=== PATIENT | female | born 1970 | race African-American/Black ===

== ENCOUNTER 2023-01-03 02:07 | Inpatient (IN) | payer OTHER ==
[~2023-01-03] VITALS: Ht 165.1 cm; Wt 110.0 kg
[2023-01-03] VITALS (12 sets, daily range): BP systolic 128–196; BP diastolic 66–91
[2023-01-03 02:55] LABS: Basophils # (auto) 0.1 10 ^3/uL (0-0.2); Eosinophils # (auto) 0.2 10 ^3/uL (0-0.8); Eosinophils % (auto) 2.1 % (0.0-7.0); Lymphocytes # (auto) 2.2 10 ^3/uL (0.4-5.4); Monocytes # (auto) 0.5 10 ^3/uL (0-1.3)
[2023-01-03 02:57] LABS: Basophils % (auto) 1.1 % (0.0-2.0); Hematocrit 34.7 % (36.0-46.0); Hemoglobin 11.2 g/dL (12.2-16.2); Lymphocytes % (auto) 28.2 % (10.0-50.0); Mean Corpuscular Hgb Conc. 32.2 g/dL (32.0-36.0); Mean Corpuscular Volume 80.9 fL (80.0-100.0); Monocytes % (auto) 6.8 % (0.0-12.0); Neutrophils # (auto) 4.7 10 ^3/uL (1.6-8.6); Neutrophils % (auto) 61.8 % (37.0-80.0); Red Blood Cells 4.29 10^6/uL (4.0-5.20); Red Cell Distribution Width 19.7 % (11.8-14.3); White Blood Cell 7.6 10^3/uL (4.4-10.8)
[2023-01-03 03:01] LABS: INR 0.87 (0.9-1.15); Partial Thromboplastin Time 23.9 sec (24.6-33.4)
[2023-01-03 03:06] LABS: Albumin 3.4 g/dL (3.4-5.0); Calcium 8.9 mg/dL (8.5-10.1); Magnesium 1.8 mg/dL (1.6-2.6); Potassium 4.1 mmol/L (3.5-5.1)
[2023-01-03 03:09] LABS: Bilirubin, Total 0.5 mg/dL (0.2-1.0); Total Protein 6.9 g/dL (6.4-8.2)
[2023-01-03] MEDS ORDERED: HEPARIN DRIP/D5W 100UNITS/ML 250 ML IV SCH (04:00)
[2023-01-03] MEDS ORDERED: HEPARIN SODIUM (PORCINE) 5000 UNITS/ML 1ML VIAL IV ONE (04:00)
[2023-01-03] MEDS ORDERED: ACETAMINOPHEN 325 MG TAB PO ONE (04:30)
[2023-01-03] MEDS ORDERED: hydrALAZINE HCL 20 MG/ML VL IV PRN (06:30)
[2023-01-03] MEDS ORDERED: MORPHINE SULFATE INJ 2 MG/ml SYRG IV PRN ×2 (06:30→11:15)
[2023-01-03] MEDS ORDERED: NITROGLYCERIN 0.4 MG SL TAB SL PRN ×2 (06:30→11:15)
[2023-01-03] MEDS ORDERED: ONDANSETRON HCL 4 MG/2 ML VIAL IV PRN (06:30)
[2023-01-03] MEDS ORDERED: TEMAZEPAM 15 MG CAP PO PRN (06:30)
[2023-01-03] MEDS ORDERED: HYDROcodone-ACET 5/325MG TAB PO PRN (06:30)
[2023-01-03] MEDS ORDERED: DOCUSATE SOD 100 MG CAP PO PRN (06:30)
[2023-01-03] MEDS ORDERED: ACETAMINOPHEN 325 MG TAB PO PRN (06:30)
[2023-01-03] MEDS ORDERED: AZITHROMYCIN 500MG/ 250ML 250 ML IV ONE (06:45)
[2023-01-03 07:11] LABS: INR 0.88 (0.9-1.15); Partial Thromboplastin Time 24.8 sec (24.6-33.4)
[2023-01-03] MEDS: MORPHINE SULFATE INJ 2 MG/ml SYRG IV PRN ×2 (08:54→19:43)
[2023-01-03] MEDS: FAMOTIDINE (10MG/ML) 2ML VL IV SCH ×2 (08:56→22:24)
[2023-01-03 09:18] LABS: Cholesterol 220 mg/dL (< 200); HDL Cholesterol 69 mg/dL (40-59); LDL Cholesterol 124 mg/dL (< 100); Triglycerides 193 mg/dL (< 150)
[2023-01-03] MEDS ORDERED: VERAPAMIL 2.5MG/ML INJ 2ML VIAL IV ONE (09:56)
[2023-01-03] MEDS ORDERED: HEPARIN SODIUM (PORCINE) 5000 UNITS/ML 1ML VIAL ONE (09:56)
[2023-01-03] MEDS ORDERED: fentaNYL CITRATE 100 MCG/2 ML VL ONE (09:57)
[2023-01-03] MEDS ORDERED: MIDAZOLAM HCL 2MG/2ML 2ml VIAL (1mg/ml) ONE ×2 (09:57→10:45)
[2023-01-03] MEDS ORDERED: METOPROLOL TARTRATE 50 MG TAB PO SCH (10:00)
[2023-01-03] MEDS ORDERED: diphenhdrAMINE HCL 50 MG/1 ML VL ONE (10:02)
[2023-01-03] MEDS ORDERED: hydrALAZINE HCL 20 MG/ML VL ONE (10:21)
[2023-01-03] MEDS ORDERED: IODIXANOL 320MG/ML 100ML BTL IV ONE (10:48)
[2023-01-03] MEDS ORDERED: DEXTROSE (50%) 50ML SYRG IV PRN (12:15)
[2023-01-03] MEDS: AZITHROMYCIN 500MG/ 250ML 250 ML IV SCH (12:40)
[2023-01-03] MEDS: SACUBITRIL-VALSARTAN 24mg/26mg TAB PO SCH ×2 (12:45→22:26)
[2023-01-03] MEDS: ASPirin 81 mg TAB PO SCH (12:47)
[2023-01-03] MEDS: amLODIPine BESYLATE 5 MG TAB PO SCH (12:47)
[2023-01-03] MEDS ORDERED: ERGOCALCIFEROL 50,000 UNIT(1.25MG) CAP PO SCH (13:15)
[2023-01-03] MEDS ORDERED: CHOLECALCIFEROL (VITD3) 2,000 UNIT CAP/TAB PO ONE (13:15)
[2023-01-03] MEDS: SODIUM CHLOR 0.9% PF (SALINE LOCK) 10ML VIAL/SYR IV SCH ×2 (14:00→22:25)
[2023-01-03] MEDS ORDERED: ALBUTEROL SULF 2.5 MG/0.5ML(0.5%) NEB SOLN NEB PRN ×2 (16:15→16:30)
[2023-01-03] MEDS ORDERED: hydrALAZINE HCL 25 MG TAB PO PRN (16:15)
[2023-01-03] MEDS: ACCU-CHEK COMFORT CURVE STRIP VI SCH ×2 (16:55→22:26)
[2023-01-03] MEDS: InsuLIN REG 1unit/0.01ml Soln (100units/ml) SC SCH ×2 (17:00→23:23)
[2023-01-03] MEDS ORDERED: ATORVASTATIN 20 MG TAB PO SCH ×2 (22:00)
[2023-01-03] MEDS: CARVEDILOL 12.5 MG TAB PO SCH (22:25)
[2023-01-04] MEDS: MORPHINE SULFATE INJ 2 MG/ml SYRG IV PRN ×2 (01:59→08:51)
[2023-01-04 04:57] VITALS: BP 140/74
[2023-01-04] MEDS: ACCU-CHEK COMFORT CURVE STRIP VI SCH ×2 (06:12→11:53)
[2023-01-04] MEDS: SODIUM CHLOR 0.9% PF (SALINE LOCK) 10ML VIAL/SYR IV SCH (06:12)
[2023-01-04] MEDS: InsuLIN REG 1unit/0.01ml Soln (100units/ml) SC SCH ×2 (06:12→11:54)
[2023-01-04 06:47] LABS: Basophils # (auto) 0.1 10 ^3/uL (0-0.2); Basophils % (auto) 0.8 % (0.0-2.0); Eosinophils # (auto) 0.2 10 ^3/uL (0-0.8); Hemoglobin 10.9 g/dL (12.2-16.2); Monocytes # (auto) 0.6 10 ^3/uL (0-1.3); Nucleated Red Blood Cells % 0.2 %
[2023-01-04 06:49] LABS: Eosinophils % (auto) 2.5 % (0.0-7.0); Hematocrit 33.8 % (36.0-46.0); Lymphocytes % (auto) 24.2 % (10.0-50.0); Mean Corpuscular Hemoglobin 25.9 pg (28.0-32.0); Mean Corpuscular Hgb Conc. 32.3 g/dL (32.0-36.0); Mean Corpuscular Volume 80.2 fL (80.0-100.0); Monocytes % (auto) 7.1 % (0.0-12.0); Neutrophils # (auto) 5.5 10 ^3/uL (1.6-8.6); Neutrophils % (auto) 65.4 % (37.0-80.0); Red Blood Cells 4.21 10^6/uL (4.0-5.20); Red Cell Distribution Width 19.6 % (11.8-14.3); White Blood Cell 8.4 10^3/uL (4.4-10.8)
[2023-01-04 07:02] LABS: Calcium 8.8 mg/dL (8.5-10.1); Potassium 4.1 mmol/L (3.5-5.1)
[2023-01-04 07:08] LABS: Albumin 3.3 g/dL (3.4-5.0); BUN/Creatinine Ratio 17.2 (10.0-20.0); Bilirubin, Total 0.7 mg/dL (0.2-1.0); Total Protein 6.5 g/dL (6.4-8.2)
[2023-01-04] MEDS: ASPirin 81 mg TAB PO SCH (08:54)
[2023-01-04] MEDS: SACUBITRIL-VALSARTAN 24mg/26mg TAB PO SCH (08:54)
[2023-01-04] MEDS: amLODIPine BESYLATE 5 MG TAB PO SCH (08:55)
[2023-01-04] MEDS: FAMOTIDINE (10MG/ML) 2ML VL IV SCH (08:56)
[2023-01-04] MEDS: AZITHROMYCIN 500MG/ 250ML 250 ML IV SCH (08:56)
[2023-01-04 09:00] VITALS: BP 157/90
[2023-01-04] MEDS ORDERED: NIFEdipine ER 30 MG TAB PO SCH (10:00)
[2023-01-04] MEDS ORDERED: CLOPIDOGREL BISULFATE 75 MG TAB PO SCH (10:00)
[2023-01-04] MEDS ORDERED: CHOLECALCIFEROL (VITD3) 2,000 UNIT CAP/TAB PO SCH (10:00)
[2023-01-04] MEDS: CARVEDILOL 12.5 MG TAB PO SCH (10:03)
[2023-01-04 13:00] VITALS: BP 143/86
[2023-01-04] MEDS ORDERED: AZIT250T9 PO (14:26)
[2023-01-04] MEDS ORDERED: CLOP75TA70 PO (14:26)
[2023-01-04] MEDS ORDERED: ASPI-325 PO (14:26)
[2023-01-04] MEDS ORDERED: AML5T PO (14:26)
[2023-01-04] MEDS ORDERED: ATOR20TA50 PO (14:26)
[2023-01-04] MEDS ORDERED: CAR125T PO (14:26)
[2023-01-04] MEDS ORDERED: SACU1TAB PO (14:27)
[2023-01-04] MEDS ORDERED: ERGO1CAP23 PO (14:27)
[2023-01-04] MEDS ORDERED: LANC-347 XX (14:29)
[2023-01-04] MEDS ORDERED: BLOO1KIT60 XX (14:29)
[2023-01-04] MEDS ORDERED: EMPA1TAB PO (14:29)
[2023-01-05] MEDS ORDERED: AZITHROMYCIN 250 MG TAB PO SCH (10:00)
== END 2023-01-04 17:26 | disposition home or self-care (01) | DRG 280 ==
LOC: ER 02:07 → EDBD 02:07 → TELE 06:39 → TELE-CENTR 14:22
PROVIDERS: ADMIT Nurse Practitioner Family; ATTEND Internal Medicine
PROC: 4A023N7 Measurement of Cardiac Sampling and Pressure, Left Heart, Percutaneous Approach (ICD-10-PCS; principal; 2023-01-03)
PROC: B211YZZ Fluoroscopy of Multiple Coronary Arteries using Other Contrast (ICD-10-PCS; 2023-01-03)
DX: I16.1 Hypertensive emergency (principal); I21.A1 Myocardial infarction type 2; J18.9 Pneumonia, unspecified organism; Z68.41 Body mass index [BMI] 40.0-44.9, adult; E11.9 Type 2 diabetes mellitus without complications; E66.01 Morbid (severe) obesity due to excess calories; E55.9 Vitamin D deficiency, unspecified; I10 Essential (primary) hypertension; I25.10 Atherosclerotic heart disease of native coronary artery without angina pectoris; K21.9 Gastro-esophageal reflux disease without esophagitis; E78.5 Hyperlipidemia, unspecified; J45.909 Unspecified asthma, uncomplicated; Z86.711 Personal history of pulmonary embolism; Z91.14 Patient's other noncompliance with medication regimen; Z71.3 Dietary counseling and surveillance; Z95.5 Presence of coronary angioplasty implant and graft; Z20.822 Contact with and (suspected) exposure to COVID-19
CPT/HCPCS: 36415; 71045; 80053; 80061; 82306; 82962; 83036; 83735; 83880; 84443; 84484; 85025; 85610; 85730; 87426; 93005; 93306; 93458; 94640; 96365; 96375; 99152; 99153; 99291; G0378; J1815; J2250; J3490; Q9967

== ENCOUNTER 2025-03-09 23:37 | Inpatient (IN) | payer OTHER ==
[~2025-03-09] VITALS: Ht 165.1 cm; Wt 113.5 kg
[~2025-03-09 23:37] MED LIST: ALBU108A5 INH; AML5T PO; ASPI-325 PO; ATOR20TA50 PO; AZIT-43 PO; BLOO1KIT60 XX; BUME1TAB3 PO; CARV-216 PO; CLOP75TA70 PO; EMPA1TAB PO; ERGO1CAP23 PO; FAMO-12 PO; FLUT230A2 INH; HYDR-4798 PO; ISOS1TAB28 PO; LANC-347 XX; LISI20TA56 PO; METF-490 PO; METO1TAB9 PO; PANT40T PO; SACU1TAB PO; SEMA1INJ2 SC; SPIR25TA8 PO; TIRZ5INJ SC; ZOFR4T PO
[2025-03-10] VITALS (13 sets, daily range): BP systolic 144–151; BP diastolic 75–87; PULSE 71–79; RESP 14–20; TEMP 97.5–98.1; O2SAT 93–100
[2025-03-10] MEDS: ALBUTEROL SULF 2.5 MG/0.5ML(0.5%) NEB SOLN NEB ONE (00:02)
[2025-03-10] MEDS: IPRATROPIUM BROM 0.5 MG/2.5ML INH SOL NEB ONE (00:02)
[2025-03-10 00:19] LABS: Basophils # (auto) 0 10 ^3/uL (0-0.2); Basophils % (auto) 0.2 % (0.0-2.0); Eosinophils # (auto) 0 10 ^3/uL (0-0.8); Eosinophils % (auto) 0.6 % (0.0-7.0); Hematocrit 40.4 % (36.0-46.0); Hemoglobin 12.8 g/dL (12.2-16.2); Lymphocytes # (auto) 1.9 10 ^3/uL (0.4-5.4); Lymphocytes % (auto) 30.8 % (10.0-50.0); Mean Corpuscular Hgb Conc. 31.6 g/dL (32.0-36.0); Monocytes # (auto) 0.8 10 ^3/uL (0-1.3); Monocytes % (auto) 13.2 % (0.0-12.0); Neutrophils # (auto) 3.3 10 ^3/uL (1.6-8.6); Neutrophils % (auto) 55.2 % (37.0-80.0); Nucleated Red Blood Cells % 0.1 %; Platelet Count (auto) 200 10^3/uL (140-450); Red Blood Cells 5.11 10^6/uL (4.0-5.20); Red Cell Distribution Width 18.9 % (11.8-14.3); White Blood Cell 6.1 10^3/uL (4.4-10.8)
[2025-03-10 00:22] LABS: Alanine Aminotransferase 16 U/L (7-40); Albumin 4.4 g/dL (3.2-4.8); Alkaline Phosphatase 101 U/L (46-116); Anion Gap 9 (5-15); BUN/Creatinine Ratio 10.3 (10.0-20.0); Bilirubin, Total 0.4 mg/dL (0.2-1.0); Blood Urea Nitrogen 10 mg/dL (9-23); Carbon Dioxide 24 mmol/L (20-31); Chloride 105 mmol/L (98-107); Lipase 44 U/L (12-53); Potassium 3.7 mmol/L (3.5-5.1); Sodium 138 mmol/L (136-145); Total Protein 7.2 g/dL (5.7-8.2)
[2025-03-10 00:29] LABS: Aspartate Aminotransferase 13 U/L (13-40); Glucose 124 mg/dL (74-106)
--- NOTE | 2025-03-10 00:44 | DVH ---
EXAM: XY CHEST PORTABLE CLINICAL HISTORY: Chest pain TECHNIQUE: Single AP view of the chest WID: COMPARISON: XY CHEST PORTABLE on DOS: 01/03/23 FINDINGS: Lines and tubes: None Chest: Mild cardiomegaly without pulmonary vascular congestion. No pleural effusion, pneumothorax, or consolidation. Limited depth of inspiration with linear left ba silar opacity likely atelectasis. The osseous structures are grossly intact. IMPRESSION: 1. Mild cardiomegaly without CHF or pneumonia. 2. Limited depth of inspiration with mild left basilar linear opacity likely atelectasis.
--- NOTE | 2025-03-10 01:58 | ED.PDOC ---
HPI Comments This patient is a pleasant but morbidly obese 54-year-old female who arrives the ED today for complaints of chest pain for the past several hours. Patient states she has had chest pain events in the past without a specific MD event. Patient has a history of coronary artery disease as well as a PE event. Patient states the pain started substernal and travel to the right side of her chest in the left side. Patient denies any fever nausea or vomiting. Patient was mildly hypertensive and tachycardic at arrival. Chief Complaint: Chest Pain Time Seen by MD: 23:38 Reviewed Notes: Nurses Notes Allergies: Coded Allergies: Hydrochlorothiazide (Verified Allergy, Unknown, 03/09/25) Home Meds Active Scripts Lancets (Freestyle Lancets) Lancets Mis, ' XX ACHS, #90 Prov:NIKKI NOBLE MD 01/04/23 Blood Glucose Monitoring Suppl (D-Care Glucometer Kit/Glu W/Device) 1 Kit Kit, KIT XX ACHS, #1 Prov:NIKKI NOBLE MD 01/04/23 Empagliflozin (Jardiance) 10 Mg Tab, 10 MG PO QAM for 30 Days, #30 TAB Prov:NIKKI NOBLE MD 01/04/23 Sacubitril-Valsartan (Entresto 24-26 mg) 1 Tab Tab, 1 TAB PO BID for 30 Days, #60 TAB Prov:NIKKI NOBLE MD 01/04/23 Ergocalciferol (VITAMIN D 52817 UNIT) 50,000 [place], [address] UNIT PO Q7D for 15 Days, #15 CAP Prov:NIKKI NOBLE MD 01/04/23 Clopidogrel Bisulfate (CLOPIDOGREL) 75 Mg Tab, 75 MG PO DAILY for 30 Days, #30 TAB Prov:NIKKI NOBLE MD 01/04/23 Carvedilol (COREG) 12.5 Mg Tab, 25 MG PO Q12HR for 30 Days, #120 TAB Prov:NIKKI NOBLE MD 01/04/23 Azithromycin (Azithromycin) 250 Mg Tab, 250 MG PO DAILY for 3 Days, #3 TAB Prov:NIKKI NOBLE MD 01/04/23 Atorvastatin Calcium (ATORVASTATIN CALCIUM) 20 Mg Tab, 40 MG PO HS for 30 Days, #60 TAB Prov:NIKKI NOBLE MD 01/04/23 Aspirin (Aspirin Low Dose) 81 Mg Tab, 81 MG PO DAILY for 30 Days, #30 TAB Prov:NIKKI NOBLE MD 01/04/23 Amlodipine Besylate (NORVASC TABLET) 5 Mg Tb, 10 MG PO DAILY for 30 Days, #60 TAB Prov:NIKKI NOBLE MD 01/04/23 Information Source: Patient, Friend Mode of Arrival: EMS Severity: Moderate Timing: Hours Duration: Since onset Prehospital treatment: None Location: Chest (R), Chest (L), Substernal Quality: Sharp, Squeezing, Pressure Onset: At Rest Cardiac Risk Factors: HTN History of: Similar pain in past, Aspirin Past Medical History PAST MEDICAL HISTORY: CAD, High Lipids, HTN, PE 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 [employer] BUSINESS Hx Family History Family History: Reviewed,noncontributory to illness Social History Smoker: Non-Smoker Alcohol: Denies ETOH Use Drugs: Denies Drug Use Lives In: Home Constitutional: denies: chills, diaphoresis, fatigue, fever, malaise, sweats, weakness, others EENTM: denies: blurred vision, double vision, ear bleeding, ear discharge, ear drainage, ear pain, ear ringing, eye pain, eye redness, hearing loss, mouth pain, mouth swelling, nasal discharge, nose bleeding, nose congestion, nose pain, photophobia, tearing, throat pain, throat swelling, voice changes, others Respiratory: denies: cough, hemoptysis, orthopnea, SOB at rest, shortness of breath, SOB with excertion, stridor, wheezing, others Cardiovascular: reports: chest pain; denies: dizzy spells, diaphoresis, Dyspnea on exertion, edema, irregular heart beat, left arm pain, lightheadedness, palpitations, PND, syncope, others Gastrointestinal: denies: abdomen distended, abdominal pain, blood streaked bowels, constipated, diarrhea, dysphagia, difficulty swallowing, hematemesis, melena, nausea, poor appetite, poor fluid intake, rectal bleeding, rectal pain, vomiting, others Genitourinary: denies: abnormal vagina bleeding, burning, dyspareunia, dysuria, flank pain, frequency, hematuria, incontinence, pain, , vagina discharge, urgency, others Neurological: denies: dizziness, fainting, headache, left sided numbness, left sided weakness, numbness, paresthesia, pre-existing deficit, right sided numbness, right sided weakness, seizure, speech problems, tingling, tremors, weakness, others Musculoskeletal: denies: back pain, gout, joint pain, joint swelling, muscle pain, muscle stiffness, neck pain, others Integumetry: denies: bruises, change in color, change in hair/nails, dryness, laceration, lesions, lumps, rash, wounds, others Allergic/Immunocompromised: denies: Difficulty Healing, Frequent Infections, Hives, Itching, others Hematologic/Lymphatic: denies: anemia, blood clots, easy bleeding, easy bruising, swollen glands, others Endocrine: denies: excessive hunger, excessive sweating, excessive thirst, excessive urination, flushing, intolerance to cold, intolerance to heat, unexplained weight gain, unexplained weight loss, others Psychiatric: reports: anxiety; denies: bipolar disorder, depression, hopeless, panic disorder, schizophrenia, sleepless, suicidal, others Physical Exam General Appearance: Moderate Distress (Moderate distress due to right-sided chest pain concerns that the patient states is also involving the breast.), Obese HEENT: Normal ENT Inspection, Pharynx Normal, TMs Normal Neck: Full Range of Motion, Non-Tender, Normal, Normal Inspection Respiratory: Lungs Clear, No Accessory Muscle Use, No Respiratory Distress, Normal Breath Sounds, Other (Right-sided breast pain that extends into the chest. No signs of trauma. No edema or ecchymosis.) Cardiovascular: No Edema, No JVD, No Murmur, No Gallop, Normal Peripheral Pulses, Regular Rate/Rhythm Breast Exam: Other (Right breast was tender to palpation of the lateral aspect extending into the chest wall. No masses noted. No signs of trauma.) Gastrointestinal: No Organomegaly, Non Tender, No Pulsatile Mass, Normal Bowel Sounds, Soft Genitalia: Deferred Pelvic: Deferred Rectal: Deferred Extremities: No calf tenderness, Normal capillary refill, Normal inspection, Normal range of motion, Non-tender, No pedal edema Neurologic: Alert, No Motor Deficits, Normal Affect, Normal Mood, No Sensory Deficits Cerebellar Function: Normal Reflexes: Normal Skin: Dry, Normal Color, Warm Lymphatic: No Adenopathy Was a procedure done? Was a procedure done?: No CP Differential Dx Differential Diagnosis: A-fib, A-Flutter, Anxiety / Panic Attack, Atrial Dysrhythmia, AV Block 1st Degree, MD Differential Diagnosis: CHF Differential Diagnosis: Angina, Costochondritis X-Ray, Labs, Meds, VS Vital Signs Date Time Temp Pulse Resp B/P (MAP) Pulse Ox O2 Delivery O2 Flow Rate FiO2 03/10/25 00:03 18 96 Room Air* 0 21 03/09/25 23:47 98.4 86 22 145/105 (118) 92 98.4 03/09/25 23:44 80 Lab Test 03/10/25 00:40 03/09/25 23:50 Range/Units Troponin I High Sensitivity 57 *H 55 *H </=34 ng/L White Blood Count 6.1 4.4-10.8 10^3/uL Red Blood Count 5.11 4.0-5.20 10^6/uL Hemoglobin 12.8 12.2-16.2 g/dL Hematocrit 40.4 36.0-46.0 % Mean Corpuscular Volume 79.0 L 80.0-100.0 fL Mean Corpuscular Hemoglobin 25.0 L 28.0-32.0 pg Mean Corpuscular Hemoglobin Concent 31.6 L 32.0-36.0 g/dL Red Cell Distribution Width 18.9 H 11.8-14.3 % Platelet Count 200 140-450 10^3/uL Mean Platelet Volume 7.8 6.9-10.8 fL Neutrophils (%) (Auto) 55.2 37.0-80.0 % Lymphocytes (%) (Auto) 30.8 10.0-50.0 % Monocytes (%) (Auto) 13.2 H 0.0-12.0 % Eosinophils (%) (Auto) 0.6 0.0-7.0 % Basophils (%) (Auto) 0.2 0.0-2.0 % Neutrophils # (Auto) 3.3 1.6-8.6 10 ^3/uL Lymphocytes # (Auto) 1.9 0.4-5.4 10 ^3/uL Monocytes # (Auto) 0.8 0-1.3 10 ^3/uL Eosinophils # (Auto) 0 0-0.8 10 ^3/uL Basophils # (Auto) 0 0-0.2 10 ^3/uL Nucleated Red Blood Cells 0.1 % D-Dimer, Quantitative 2.64 H 0.0-0.49 mg/L FEU Sodium Level 138 136-145 mmol/L Potassium Level 3.7 3.5-5.1 mmol/L Chloride Level 105 98-107 mmol/L Carbon Dioxide Level 24 20-31 mmol/L Anion Gap 9 5-15 Blood Urea Nitrogen 10 9-23 mg/dL Creatinine 0.97 0.550-1.02 mg/dL Glomerular Filtration Rate Calc 69 >90 mL/min BUN/Creatinine Ratio 10.3 10.0-20.0 Serum Glucose 124 H 74-106 mg/dL Lactic Acid Level 1.4 0.4-2.0 mmol/L Calcium Level 9.0 8.7-10.4 mg/dL Total Bilirubin 0.4 0.2-1.0 mg/dL Aspartate Amino Transferase (AST) 13 13-40 U/L Alanine Aminotransferase (ALT) 16 7-40 U/L Alkaline Phosphatase 101 46-116 U/L B-Type Natriuretic Peptide 127.33 0-100 pg/mL Total Protein 7.2 5.7-8.2 g/dL Albumin 4.4 3.2-4.8 g/dL Lipase 44 12-53 U/L Current Medications Medications (Trade) Dose Ordered Sig/Rodney Route Start Time Stop Time Status Last Admin Albuterol (Ventolin Medneb) 5 mg ONCE ONCE NEB 03/09/25 23:45 03/09/25 23:46 DC 03/10/25 00:02 Ipratropium Otter (Atrovent Medneb) 0.5 mg ONCE ONCE NEB 03/09/25 23:45 03/09/25 23:46 DC 03/10/25 00:02 X-Ray, Labs, Meds, VS Comment All studies performed the ED were evaluated by me personally. Serum laboratories revealed a elevated troponin as well as an elevated D-dimer. CT angio chest was pending at time of this note. Patient was given a dose of Lovenox. EKG revealed a sinus rhythm with a rate of 80. Probable left atrial enlargement as well as LVH with secondary repolarization abnormality noted. CA interval of 144 and QT interval 406. Chest x-ray revealed a mild cardiomegaly without CHF or pneumonia. Due to the patient's elevated troponins and elevated D-dimer and history of cardiac concerns. Patient will be admitted for management of multiple issues. Patient will require a cardiac consultation. Time of 1ST Reevaluation: 02:04 Reevaluation 1ST: Improved Consultation: PCP, Cardiology Patient Education/Counseling: Diagnosis, Treatment Family Education/Counseling: Diagnosis, Treatment Sepsis Sepsis Reasesment Focused Exam Orders: Laboratory Tests 03/09/25 23:50: Lactic Acid Level 1.4 Departure 1 Departure Time of Disposition: 02:06 Impression: Primary Impression: Chest pain Additional Impressions: Elevated troponin I level Elevated d-dimer Disposition: ADMITTED INPATIENT Condition: Stable Discharged With: Self, Friend Critical Care Note Critical Care Time?: No Stability Stability form required: No Heart Score Heart Score: Heart Score Response (Comments) Value History Slightly Suspicious 0 EKG Repolarization Disturb 1 Age 45-64 1 Risk Factors 1 or 2 risk factors 1 Troponin 1-2 x's Normal limit 1 Total 4 STALIN BOLDEN PAC March 10, 2025 01:58
[2025-03-10] MEDS: IOHEXOL 350 MG/ML 100ML IJ ONE (02:41)
--- NOTE | 2025-03-10 04:37 | ECG ---
[facility] Test Date: 2025-03-09 Test Time: 23:44:06 Pat Name: [facility] Department: ED Room: 0293T Gender: F Family Manager: : 1970 Requested By: STALIN BOLDEN Order Number: [id number] Reading MD: Pierce Garcia Measurements Intervals Banner Rate: 80 P: 37 TN: 144 QRS: -31 QRSD: 109 T: 216 QT: 406 QTc: 469 Interpretive Statements Sinus rhythm Probable left atrial enlargement LVH with secondary repolarization abnormality Electronically Signed On 03-11-2025 12:12:41 PDT by Pierce Garcia Please click the below link to view image of tracing.
[2025-03-10] MEDS: NITROGLYCERIN 0.4 MG SL TAB SL ONE (04:52)
[2025-03-10] MEDS: DexAMETHasone SOD PHOS 10MG/1ML VIAL INJ IM ONE (04:53)
[2025-03-10] MEDS: ENOXAPARIN SOD 40 MG/0.4 ML SYRINGE SC ONE (04:53)
[2025-03-10] MEDS: ACETAMINOPHEN 325 MG TAB PO ONE (05:29)
--- NOTE | 2025-03-10 06:47 | DVH ---
CTA Chest with intravenous contrast INDICATION: Elevated D-dimer COMPARISON: None TECHNIQUE: Multidetector spiral CTA of the chest was performed of the chest with intravenous contrast . PULMONARY ANGIOGRAPHY PROTOCOL was utilized using a bolus-tracking technique centered on the main p ulmonary artery. Axial, coronal and sagittal multiplanar and MIP reformats were performed. Radiation Dose : 1. Chest: CTDI volume is 27.6 mGy. Dose-length product is 904 mGy*cm The dose indicators for CT are the volume Computed Tomography (CT) Dose Index (CTDIvol) and the Dose Length Product (DLP), and are measured in units of mGy and mGy-cm, respectively. These indicators are not patient dose, but values generated from the CT scanner acquisition factors. The report includes radiation exposure data for exposures received during this examination. Findings: Pulmonary artery: No pulmonary embolism Lower neck: Normal thyroid. Lungs: Dependent atelectasis. Heart/Vascular Structures: Cardiomegaly Lymph Nodes: No adenopathy Pleura: No pleural effusion or significant pneumothorax. Musculoskeletal: No acute osseous abnormality. Soft tissues: Normal. Upper abdomen: Limited portions of the upper abdomen are unremarkable. IMPRESSION: No pulmonary embolism. Cardiomegaly.
--- NOTE | 2025-03-10 08:10 | DVHHP2 ---
History of Present Illness Reason for Visit: Chest pain History of Present Illness This is a 54-year-old female presents in the ED with a chief complaint of chest pain. The patient reports sharp chest pain began while she was sitting and watching TV and has been ongoing for several hours for which prompted her to visit the emergency department. The chest pain is associated with shortness of breath. The patient reports that the current symptoms do not feel the same as the symptoms experienced during her prior AL in 2021. In the emergency department, a 12 lead ECG revealing sinus rhythm with no acute ischemia. The patient states that she had last seen her Cardiology Dr. Cuba about a month ago for routine checkup. Upon reviewing, Medical record the patient had undergone and left coronary angiogram with this facility in 2022, with patent LAD stent. Past medical history of myocardial infarction in 2021, status post PTCA with a stent to LAD, HFmrEF, hypertension, hyperlipidemia, diabetes, pulmonary embolus, tobacco use, and obesity. Past Medical History As stated in HPI Past Surgical History PTCA Past Social History Tobacco use 5-6 sticks per day Denies illicit drug use or ETOH abuse Review of Systems Constitutional: Yes: Malaise; No: Fever, Chills, Sweats, Weakness, Other Eyes: No: Pain, Vision change, Conjunctivae inflammation, Eyelid inflammation, Other, Redness ENT: No: Ear pain, Ear discharge, Nose pain, Nose discharge, Nose congestion, Mouth pain, Mouth swelling, Throat pain, Throat swelling, Other Respiratory: Shortness of breath; No: Cough, Dry, SOB with excertion, Wheezing, Hemoptysis, Pleuritic Pain, Sputum, Wheezing, Other Cardiovascular: Chest Pain, Orthopnea; No: Palpitations, Paroxysmal Noc. Dyspnea, Edema, Lt Headedness, Other Gastrointestinal: No: Nausea, Vomiting, Abdominal Pain, Diarrhea, Constipation, Melena, Hematochezia, Other Genitourinary: No Dysuria, No Frequency, No Incontinence, No Hematuria, No Retention, No Other Musculoskeletal: No: other, neck pain, shoulder pain, arm pain, back pain, hand pain, leg pain, foot pain Skin: No: Rash, Lesions, Jaundice, Bruising, Other Neurological: No: Weakness, Numbness, Incoordination, Change in speech, Confusion, Seizures, Other Allergies: Coded Allergies: Hydrochlorothiazide (Verified Allergy, Unknown, 03/09/25) Exam Vital Signs Vital Signs Date Time Temp Pulse Resp B/P (MAP) Pulse Ox O2 Delivery O2 Flow Rate FiO2 03/10/25 05:53 99.4 76 20 146/93 (110) 99.4 03/10/25 00:03 96 Room Air* 0 21 General Appearance: Alert, Oriented X3, Cooperative, mild distress HEENT: Atraumatic, PERRLA Respiratory: Clear to auscultation, Normal air movement Cardiovascular: Regular rate, Normal S1, Normal S2, Other (Bilateral lower extremity + edema, orthopnea) Abdominal: Normal bowel sounds, Soft, No tenderness Extremities: No clubbing, No cyanosis, Normal pulses Skin: No rashes, No breakdown Neuro: Normal gait, Normal speech, Strength at 5/5 X4 ext Psych/Mental Status: Mental status NL Labs/Xrays Labs Test 03/10/25 02:38 03/09/25 23:50 Range/Units Troponin I High Sensitivity 52 *H </=34 ng/L White Blood Count 6.1 4.4-10.8 10^3/uL Red Blood Count 5.11 4.0-5.20 10^6/uL Hemoglobin 12.8 12.2-16.2 g/dL Hematocrit 40.4 36.0-46.0 % Mean Corpuscular Volume 79.0 L 80.0-100.0 fL Mean Corpuscular Hemoglobin 25.0 L 28.0-32.0 pg Mean Corpuscular Hemoglobin Concent 31.6 L 32.0-36.0 g/dL Red Cell Distribution Width 18.9 H 11.8-14.3 % Platelet Count 200 140-450 10^3/uL Mean Platelet Volume 7.8 6.9-10.8 fL Neutrophils (%) (Auto) 55.2 37.0-80.0 % Lymphocytes (%) (Auto) 30.8 10.0-50.0 % Monocytes (%) (Auto) 13.2 H 0.0-12.0 % Eosinophils (%) (Auto) 0.6 0.0-7.0 % Basophils (%) (Auto) 0.2 0.0-2.0 % Neutrophils # (Auto) 3.3 1.6-8.6 10 ^3/uL Lymphocytes # (Auto) 1.9 0.4-5.4 10 ^3/uL Monocytes # (Auto) 0.8 0-1.3 10 ^3/uL Eosinophils # (Auto) 0 0-0.8 10 ^3/uL Basophils # (Auto) 0 0-0.2 10 ^3/uL Nucleated Red Blood Cells 0.1 % D-Dimer, Quantitative 2.64 H 0.0-0.49 mg/L FEU Sodium Level 138 136-145 mmol/L Potassium Level 3.7 3.5-5.1 mmol/L Chloride Level 105 98-107 mmol/L Carbon Dioxide Level 24 20-31 mmol/L Anion Gap 9 5-15 Blood Urea Nitrogen 10 9-23 mg/dL Creatinine 0.97 0.550-1.02 mg/dL Glomerular Filtration Rate Calc 69 >90 mL/min BUN/Creatinine Ratio 10.3 10.0-20.0 Serum Glucose 124 H 74-106 mg/dL Lactic Acid Level 1.4 0.4-2.0 mmol/L Calcium Level 9.0 8.7-10.4 mg/dL Total Bilirubin 0.4 0.2-1.0 mg/dL Aspartate Amino Transferase (AST) 13 13-40 U/L Alanine Aminotransferase (ALT) 16 7-40 U/L Alkaline Phosphatase 101 46-116 U/L B-Type Natriuretic Peptide 127.33 0-100 pg/mL Total Protein 7.2 5.7-8.2 g/dL Albumin 4.4 3.2-4.8 g/dL Lipase 44 12-53 U/L PROCEDURE(s): CXRP - CHEST PORTABLE REASON: Chest pain ORDER NUMBER(s): [id number], ACCESSION NUMBER(s): [id number] EXAM: XY CHEST PORTABLE CLINICAL HISTORY: Chest pain TECHNIQUE: Single AP view of the chest WID: COMPARISON: XY CHEST PORTABLE on DOS: 01/03/23 FINDINGS: Lines and tubes: None Chest: Mild cardiomegaly without pulmonary vascular congestion. No pleural effusion, pneumothorax, or consolidation. Limited depth of inspira tion with linear left basilar opacity likely atelectasis. The osseous structures are grossly intact. IMPRESSION: 1. Mild cardiomegaly without CHF or pneumonia. 2. Limited depth of inspiration with mild left basilar linear opacity likely atelectasis. Assessment/Plan Assessment/Plan # NSTEMI # Chest Pain to rule out progressive CAD # hx of AL s/p PCI to LAD x 1 in 2021 # HFmrEF # cardiomegaly Admit to telemetry unit Chest pain protocol Heart score - 6 continue GDMT for HF Cardiology consult Daily weight, strict intake and output # elevated D-dimer, PE ruled out # hx of PE Monitor # hypertension Continue with antihypertensives Monitor # diabetes Insulin sliding scale Check A1c # hyperlipidemia Continue with statins # tobacco use Nicotine patch Smoking cessation counseled # morbid obesity Lifestyle modification counseled with diet, regular exercise, weight loss DVT prophylaxis Medical plan discussed with patient and spouse Plan discussed with: Patient, Spouse My Orders Orders - JAVIER HAMMOND FLOOD CONTROL ENGINEER Procedure Category Date Status Time Admit ADMIT 03/10/25 Verified 08:01 Code Status CODE 03/10/25 Verified 08:01 Hydrocodone-Acet PHA 03/10/25 Verified 5/325mg Tab ([place] 08:15 Ondansetron Hcl PHA 03/10/25 Verified (Zofran) 08:15 Fall Risk Precautions ROBERT 03/10/[address] 08:01 Complete Blood Count LAB 03/11/25 Verified 04:00 Comprehensive LAB 03/11/25 Verified Metabolic Panel 04:00 Cardiac DIET 03/10/25 Verified Diet-2gna,Lofat,Lochol Breakfast Echo 2d Mode Cardiac US 03/10/25 Verified DOP 08:01 Condition: Fair ROBERT 03/10/25 Verified 08:01 Acetaminophen Tablet PHA 03/10/25 Verified (Tylenol Tablet) 08:15 Morphine Sulfate PHA 03/10/25 Verified Injection 08:15 Nitroglycerin PHA 03/10/25 Verified Sublingual (Ntrostat 08:15 Morphine Sulfate PHA 03/10/25 Verified Injection 08:15 Stat Ekg For Chest ROBERT 03/10/25 Verified Pain 08:01 Notify Of Changes ROBERT 03/10/25 Verified From Base 08:01 Clinical Psychiatrist For ROBERT 03/10/25 Verified 24 Hours 08:01 Emergency Dysrhythmia ROBERT 03/10/25 Verified Protocol 08:01 Rhythm Strips Once ROBERT 03/10/25 Verified Every Shift 08:01 Oxygen By Nasal RT 03/10/25 Verified Cannula 08:01 Daily Weight ROBERT 03/10/25 Verified 08:01 Strict I & O ROBERT 03/10/25 Verified 08:01 * Cardiology Consult CONS 03/10/25 Verified 08:01 Date of Service: March 10, 2025 Billing Provider: JAVIER HAMMOND Common Visit Codes: [id number] INP/OBS CARE (HIGH) Consultation Codes: [id number] CONSULT <60MIN JAVIER HAMMOND March 10, 2025 08:10
[2025-03-10] MEDS ORDERED: MORPHINE SULFATE INJ 2 MG/ml SYRG IV PRN (08:15)
[2025-03-10] MEDS ORDERED: ONDANSETRON HCL 4 MG/2 ML VIAL IV PRN (08:15)
[2025-03-10] MEDS ORDERED: DEXTROSE (50%) 50ML SYRG IV PRN (08:15)
[2025-03-10 08:32] LABS: LDL Cholesterol 95 mg/dL (< 100)
[2025-03-10 08:33] LABS: HDL Cholesterol 48 mg/dL (40-59)
[2025-03-10 08:34] LABS: Cholesterol 185 mg/dL (< 200)
[2025-03-10 08:36] LABS: Triglycerides 345 mg/dL (< 150)
[2025-03-10] MEDS ORDERED: CARVEDILOL 12.5 MG TAB PO SCH (10:00)
[2025-03-10] MEDS: NICOTINE 21MG/24 HR TOPICAL PATCH TD ONE (10:15)
[2025-03-10] MEDS: CARVEDILOL 3.125 MG TAB PO ONE (10:15)
--- NOTE | 2025-03-10 10:42 | DVHINCON2 ---
Date Seen: March 10, 2025 Referring Physician JAIDEN Miller Reason for Consultation Chest pain History of Present Illness This is a 54-year-old female who presented to the emergency room with a chief complaint of chest pain since . The patient reports she was walking uphill when she developed increased shortness of breath and substernal chest pressure with ongoing symptoms during the past two days she has prompting her to seek further medical attention. States there is relief of symptoms upon ASA and NTG administration. Upon initial assessment, the patient was found outside smoking and with increased work of breathing during interview. She has a history of congestive heart failure stating she stopped all of her home medications including furosemide for approximately one week as it would make her urinate often. She also reported history of STEMI with PCI and stent placement on 01/11/2022. She underwent a cardiac catheterization at this facility on 12/2022 revealing mild non-obstructive CAD with a patent LAD stent. A twelve lead electrocardiogram revealed a sinus rhythm with dynamic changes which were compared to ECGs from 2022 revealing improved dynamic changes. Serial troponin levels have remained flat in the 50s ng/L. Significant medical history includes ischemic cardiomyopathy, unspecified congestive heart failure, status post PTCA with a stent placement to the LAD in 2021 (on ASA/Plavix), hypertension, dysl ipidemia, pre-diabetes, tobacco use, and morbid obesity. Past Medical History Past medical history reviewed. No other significant than mentioned above. Past Surgical History Past surgical history reviewed. No other significant than mentioned above. Family History: Diabetes mellitus G8 MOTHER, Onset:60 years & older Hypertension G8 MOTHER, Onset:60 years & older Family History Family history reviewed. Social History Denies the use of illicit drugs, alcohol. Admits to tobacco use 1 pack/3 days. Allergies: Coded Allergies: Hydrochlorothiazide (Verified Allergy, Unknown, 03/09/25) Home Meds Active Scripts Lancets (Freestyle Lancets) Lancets Mis, ' XX ACHS, #90 Prov:NIKKI NOBLE MD 01/04/23 Blood Glucose Monitoring Suppl (D-Care Glucometer Kit/Glu W/Device) 1 Kit Kit, KIT XX [facility], #1 Prov:NIKKI NOBLE MD 01/04/23 Empagliflozin (Jardiance) 10 Mg Tab, 10 MG PO QAM for 30 Days, #30 TAB Prov:NIKKI NOBLE MD 01/04/23 Sacubitril-Valsartan (Entresto 24-26 mg) 1 Tab Tab, 1 TAB PO BID for 30 Days, #60 TAB Prov:NIKKI NOBLE MD 01/04/23 Ergocalciferol (VITAMIN D 88340 UNIT) 50,000 [place], [address] UNIT PO Q7D for 15 Days, #15 CAP Prov:NIKKI NOBLE MD 01/04/23 Clopidogrel Bisulfate (CLOPIDOGREL) 75 Mg Tab, 75 MG PO DAILY for 30 Days, #30 TAB Prov:NIKKI NOBLE MD 01/04/23 Carvedilol (COREG) 12.5 Mg Tab, 25 MG PO Q12HR for 30 Days, #120 TAB Prov:NIKKI NOBLE MD 01/04/23 Azithromycin (Azithromycin) 250 Mg Tab, 250 MG PO DAILY for 3 Days, #3 TAB Prov:NIKKI NOBLE MD 01/04/23 Atorvastatin Calcium (ATORVASTATIN CALCIUM) 20 Mg Tab, 40 MG PO HS for 30 Days, #60 TAB Prov:INKKI NOBLE MD 01/04/23 Aspirin (Aspirin Low Dose) 81 Mg Tab, 81 MG PO DAILY for 30 Days, #30 TAB Prov:NIKKI NOBLE MD 01/04/23 Amlodipine Besylate (NORVASC TABLET) 5 Mg Tb, 10 MG PO DAILY for 30 Days, #60 TAB Prov:NIKKI NOBLE MD 01/04/23 Home Meds Home medications reviewed. Current Medications Current Medications Medications (Trade) Dose Ordered Sig/Rodney Route PRN Reason Start Time Stop Time Status Last Admin Acetaminophen/ Hydrocodone Bitart ([employer] 5/325MG Tab) 1 tab Q4HP PRN PO MODERATE PAIN (4-6 PAIN SCALE) 03/10/25 08:15 Ondansetron HCl (Zofran) 4 mg Q4HP PRN IV NAUSEA / VOMITING 03/10/25 08:15 Acetaminophen (Tylenol Tablet) 650 mg Q6HP PRN PO PAIN SCALE 1-3 OR TEMP>100.4 03/10/25 08:15 Morphine Sulfate 2 mg Q4HPRN PRN IV SEVERE PAIN (7-10 PAIN SCALE) 03/10/25 08:15 Nitroglycerin (Ntrostat Sublingual) 0.4 mg Q5MINP PRN SL FOR CHEST PAIN 03/10/25 08:15 Morphine Sulfate 2 mg Q30M PRN IV FOR CHEST PAIN 03/10/25 08:15 Nicotine (Nicoderm 7MG/ 24HR) 1 patch DAILY TD 03/10/25 10:00 Amlodipine Besylate (Norvasc Tablet) 10 mg DAILY PO 03/10/25 10:00 Aspirin (Ecotrin Enteric Coated Tablet) 81 mg DAILY PO 03/10/25 10:00 Atorvastatin Calcium (Lipitor) 40 mg HS PO 03/10/25 22:00 Carvedilol (Coreg Tablet) 25 mg Q12HR PO 03/10/25 10:00 Clopidogrel Bisulfate (Plavix) 75 mg DAILY PO 03/10/25 10:00 Empaglifozin (Jardiance) 10 mg QAM PO 03/11/25 07:00 Sacubitril/ Valsartan (Entresto 24-26 Mg tab) 1 tab BID PO 03/10/25 10:00 Diagnostic Test (Pha) (Accu-Chek Comfort Curve T) 1 strip ACHS 03/10/25 11:30 Insulin Human Regular (InsuLIN R) ACHS SC 03/10/25 11:30 Dextrose 50 ml UD PRN IV Blood Sugar LESS THAN 60 03/10/25 08:15 Albuterol (Ventolin Medneb) 2.5 mg Q4HPRN PRN NEB SHORTNESS OF BREATH 03/10/25 08:15 Review of Systems Constitutional: No symptom reported Ears, Nose, & Throat: No symptom reported Eyes: No symptom reported Neurological: No symptoms reported Pulmonary/Respiratory: SOB Cardiovascular: Chest pain Gastrointestinal: No symptom reported Genitourinary: No symptom reported Musculoskeletal: No symptom reported Skin: No symptom reported Psychiatric: No symptom reported Endocrine: No symptom reported Hemotologic/Lymphatic: No symptom reported Vital Signs Vital Signs Date Time Temp Pulse Resp B/P (MAP) Pulse Ox O2 Delivery O2 Flow Rate FiO2 03/10/25 08:46 76 03/10/25 08:46 97.9 16 157/72 (100) 97 97.9 03/10/25 00:03 Room Air* 0 21 Physical Exam General Appearance: Cooperative. Well developed. Morbidly obese. Mild to moderate respiratory distress Head Exam: Normal inspection Neck Exam: Normal inspection. Non-tender. Normal alignment Pulmonary/Respiratory: Chest non-tender. Clear bilateral breath sounds Cardiovascular/Chest: Regular rate and rhythm. S1, S2. Sinus rhythm with dynamic changes. No murmurs. No JVD. Peripheral Pulses: 2+ Radial (R). 2+ Radial (L). 2+ Pedal (R). 2+ Pedal (L) Abdominal Exam: Normal bowel sounds. Soft. Nontender. No hepatospenomegaly. No masses Ankle Exam: Negative ankle edema Lower extremities: Negative lower extremity edema Neuro/Mental Status: A&O x4. Coherent Thoughts/Psych: Normal thought pattern. Appropriate mood and affect. Good judgement and insight Appearance: Mild to moderate distress Skin Exam: Normal inspection. Normal color. Warm. Dry Labs/Diagnostic Data Labs Test 03/10/25 02:38 03/10/25 00:40 03/09/25 23:50 Range/Units Troponin I High Sensitivity 52 *H </=34 ng/L Thyroid Stimulating Hormone (TSH) 1.15 0.55-4.78 uIU/mL Triglycerides Level 345 H < 150 mg/dL Cholesterol Level 185 < 200 mg/dL LDL Cholesterol 95 < 100 mg/dL HDL Cholesterol 48 40-59 mg/dL White Blood Count 6.1 4.4-10.8 10^3/uL Red Blood Count 5.11 4.0-5.20 10^6/uL Hemoglobin 12.8 12.2-16.2 g/dL Hematocrit 40.4 36.0-46.0 % Mean Corpuscular Volume 79.0 L 80.0-100.0 fL Mean Corpuscular Hemoglobin 25.0 L 28.0-32.0 pg Mean Corpuscular Hemoglobin Concent 31.6 L 32.0-36.0 g/dL Red Cell Distribution Width 18.9 H 11.8-14.3 % Platelet Count 200 140-450 10^3/uL Mean Platelet Volume 7.8 6.9-10.8 fL Neutrophils (%) (Auto) 55.2 37.0-80.0 % Lymphocytes (%) (Auto) 30.8 10.0-50.0 % Monocytes (%) (Auto) 13.2 H 0.0-12.0 % Eosinophils (%) (Auto) 0.6 0.0-7.0 % Basophils (%) (Auto) 0.2 0.0-2.0 % Neutrophils # (Auto) 3.3 1.6-8.6 10 ^3/uL Lymphocytes # (Auto) 1.9 0.4-5.4 10 ^3/uL Monocytes # (Auto) 0.8 0-1.3 10 ^3/uL Eosinophils # (Auto) 0 0-0.8 10 ^3/uL Basophils # (Auto) 0 0-0.2 10 ^3/uL Nucleated Red Blood Cells 0.1 % D-Dimer, Quantitative 2.64 H 0.0-0.49 mg/L FEU Sodium Level 138 136-145 mmol/L Potassium Level 3.7 3.5-5.1 mmol/L Chloride Level 105 98-107 mmol/L Carbon Dioxide Level 24 20-31 mmol/L Anion Gap 9 5-15 Blood Urea Nitrogen 10 9-23 mg/dL Creatinine 0.97 0.550-1.02 mg/dL Glomerular Filtration Rate Calc 69 >90 mL/min BUN/Creatinine Ratio 10.3 10.0-20.0 Serum Glucose 124 H 74-106 mg/dL Hemoglobin A1c 6.1 H <5.7 % A1C Lactic Acid Level 1.4 0.4-2.0 mmol/L Calcium Level 9.0 8.7-10.4 mg/dL Total Bilirubin 0.4 0.2-1.0 mg/dL Aspartate Amino Transferase (AST) 13 13-40 U/L Alanine Aminotransferase (ALT) 16 7-40 U/L Alkaline Phosphatase 101 46-116 U/L B-Type Natriuretic Peptide 127.33 0-100 pg/mL Total Protein 7.2 5.7-8.2 g/dL Albumin 4.4 3.2-4.8 g/dL Lipase 44 12-53 U/L Assessment Acute on chronic unspecified heart failure Ischemic cardiomyopathy NSTEMI, likely type II secondary to above Artery disease status post PTCA with a stent placement to the LAD (12/2021) Hypertension Dyslipidemia Pre-diabetes Nicotine dependance Medical non-compliance Morbid obesity Plan/Recommendation (Dr. Molina) Case discussed with Dr. Molina. Clinical presentation likely secondary to acute CHF exacerbation. The patient reported stopping all of her home medications including lasix for approximately one week. Continue preload and afterload reduction, strict I&Os, daily weight, and fluid restriction. Initiate nicotine patch. Continue with a transthoracic echocardiogram to evaluate cardiac function. Consider an outpatient stress test if deemed necessary. Strongly counseled on medical compliance and tobacco use cessation. Rest of plan per clinical course. Thank you for allowing us to participate in this patient's care. Please call if you have any questions or concerns. This medical document was created using an electronic medical record system with voice recognition software and computerized dictation system. Although this document has been carefully reviewed, there might still be some phonetic and typographical errors. Occasional wrong-word or ``sound-alike substitutions may have occurred due to the inherent limitations of voice recognition software. These areas are purely typographical due to imperfections of the software programs and do not reflect any compromise in the patient's medical care. Please read the chart carefully and recognize, using context, where these substitutions have occurred. Plan discussed with: Patient, Spouse, Other NYHA Physical activity limitations: Class4(Severe)discomfort (w any activit,symptoms at rest) Date of Service: March 10, 2025 Billing Provider: LORY SRIVASTAVA Cardiology Common Codes: [id number] INP/OBS CARE (High) LORY SRIVASTAVA March 10, 2025 10:42
[2025-03-10] MEDS: ASPirin-EC 81 mg tab PO SCH (10:47)
[2025-03-10] MEDS: SACUBITRIL-VALSARTAN 24mg/26mg TAB PO SCH (10:47)
[2025-03-10] MEDS: HYDROcodone-ACET 5/325MG TAB PO PRN (10:47)
[2025-03-10] MEDS: CLOPIDOGREL BISULFATE 75 MG TAB PO SCH (10:48)
[2025-03-10] MEDS: amLODIPine BESYLATE 5 MG TAB PO SCH (10:48)
[2025-03-10] MEDS: NICOTINE 7MG/24HR TOPICAL PATCH TD SCH (10:49)
[2025-03-10] MEDS: FUROSEMIDE 40 MG/4 ML VIAL IV ONE (10:58)
[2025-03-10] MEDS: ACCU-CHEK COMFORT CURVE STRIP VI SCH (11:29)
[2025-03-10] MEDS: ALBUTEROL SULF 2.5 MG/0.5ML(0.5%) NEB SOLN NEB PRN (11:35)
[2025-03-10] MEDS: InsuLIN REG 1unit/0.01ml Soln (100units/ml) SC SCH (11:45)
[2025-03-10] MEDS: ALBUTEROL SULF 2.5 MG/0.5ML(0.5%) NEB SOLN NEB SCH (13:38)
[2025-03-10] MEDS: FUROSEMIDE 40 MG/4 ML VIAL IV SCH (17:27)
[2025-03-10] MEDS: MORPHINE SULFATE INJ 2 MG/ml SYRG IV PRN (20:59)
[2025-03-10] MEDS: ATORVASTATIN 20 MG TAB PO SCH (21:00)
[2025-03-11] VITALS (20 sets, daily range): BP systolic 128–144; BP diastolic 57–79; PULSE 60–74; RESP 2–21; TEMP 97.6–98.5; O2SAT 10–100
[2025-03-11 02:41] LABS: Urine Bacteria None Seen /hpf (None Seen)
[2025-03-11 03:15] LABS: Urine Blood 1+ /uL (Negative); Urine Clarity Clear (Clear); Urine Color Yellow (Yellow); Urine Protein, UAD 2+ (Negative); Urine Specific Gravity 1.022 (1.001-1.035); Urine Squamous Epithelial Cell FEW /hpf (<5); Urine Urobilinogen Normal (Negative); Urine WBC 1 /HPF (0-5)
[2025-03-11] MEDS: EMPAGLIFLOZIN 10 MG TAB PO SCH (06:20)
[2025-03-11 07:27] LABS: Basophils # (auto) 0 10 ^3/uL (0-0.2); Eosinophils # (auto) 0 10 ^3/uL (0-0.8); Lymphocytes # (auto) 0.9 10 ^3/uL (0.4-5.4)
[2025-03-11 07:30] LABS: Basophils % (auto) 0.1 % (0.0-2.0); Eosinophils % (auto) 0.1 % (0.0-7.0); Hemoglobin 12.3 g/dL (12.2-16.2); Lymphocytes % (auto) 10.8 % (10.0-50.0); Mean Corpuscular Hemoglobin 25.7 pg (28.0-32.0); Mean Corpuscular Hgb Conc. 33.4 g/dL (32.0-36.0); Monocytes # (auto) 0.7 10 ^3/uL (0-1.3); Monocytes % (auto) 9.1 % (0.0-12.0); Neutrophils # (auto) 6.4 10 ^3/uL (1.6-8.6); Neutrophils % (auto) 79.9 % (37.0-80.0); Platelet Count (auto) 242 10^3/uL (140-450); Red Cell Distribution Width 18.2 % (11.8-14.3); White Blood Cell 8.1 10^3/uL (4.4-10.8)
[2025-03-11 07:42] LABS: Alanine Aminotransferase 15 U/L (7-40); Alkaline Phosphatase 98 U/L (46-116); Anion Gap 12 (5-15); BUN/Creatinine Ratio 17.9 (10.0-20.0); Blood Urea Nitrogen 20 mg/dL (9-23); Calcium 9.6 mg/dL (8.7-10.4); Carbon Dioxide 24 mmol/L (20-31); Chloride 103 mmol/L (98-107); Potassium 3.8 mmol/L (3.5-5.1); Sodium 139 mmol/L (136-145); Total Protein 7.1 g/dL (5.7-8.2)
[2025-03-11 07:43] LABS: Albumin 4.3 g/dL (3.2-4.8); Bilirubin, Total 0.3 mg/dL (0.2-1.0)
[2025-03-11 07:45] LABS: Aspartate Aminotransferase 13 U/L (13-40); Glucose 148 mg/dL (74-106)
--- NOTE | 2025-03-11 11:35 | DVHSR ---
APPROVED REPORT EXAM: Two-dimensional and M-mode echocardiogram with Doppler and color Doppler. Blood Pressure: 146/93 mmHg INDICATION CAD RISK FACTORS Obesity: Height: 5'5", Weight: 250 DIMENSIONS LVDd5.5 (3.8-5.7cm)LA (2D)3.8 (1.9-4.0cm)Aortic Root3.4 (2.0-3.7cm) LVDs4.2 (2.5-4.0cm)LA (MM) (1.9-4.0cm)Aortic Cusp Exc2.0 (1.5-2.0cm) EF (%) 50.0 (55-70%)Rt. Atrium4.1 (1.9-4.0cm)Asc. Aorta cm IVSd1.3 (0.7-1.1cm)RV (D)3.7 (1.8-2.4cm) PWd0.9 (0.7-1.1cm) Mitral Valve MitralMitral Stenosis E wave0.73m/sMV Mean GR.mmHg A wave1.05m/sMV Peak GR.mmHg E/A ratio0.72D MVAcm2 DECEL [id number] 1/2 Timems Aortic Valve Aortic ValveAortic Stenosis V10.90m/Jessica Mean GR.6mmHg V21.84m/Jessica Peak GR.14mmHg LVOT Diameter2.2 (1.8-2.4cm)Doppler AVA1.86cm2 Pulmonic Valve V21.18m/s Tricuspid Valve TR Velocity3.23m/s [id number] Conclusion Left ventricle: Left ventricle was mildly dilated. Inferior hypokinesis was seen. The LVEF was 50- 55%. Abnormal relaxation of left ventricle diastolic function was observed. Right ventricle was mildly dilated with normal systolic function. Both atria were mildly dilated. Aortic valve was trileaflet. There was no aortic insufficiency/stenosis. There was trivial mitral r egurgitation. There was mild tricuspid regurgitation. There was trivial pulmonary valve insufficien cy. IVC was normal size with normal respiratory variation. Right ventricular systolic pressure was asses sed at 44 mm Hg. There was no pericardial effusion.
--- NOTE | 2025-03-11 11:48 | DVHPN2 ---
Consult Progress Note Date Seen: March 11, 2025 Subjective Patient reports: Feels better Review of Systems: CVS:Abnormal, RESPIRATORY:Normal, NEURO:Normal Other Systems: States feeling better. Now with less frequent chest pain. Denies SOB Objective vital signs Vital Sign Date Time Temp Pulse Resp B/P (MAP) Pulse Ox O2 Delivery O2 Flow Rate FiO2 03/11/25 10:24 128/65 03/11/25 09:56 72 2 97 03/11/25 09:28 97.7 97.7 03/10/25 20:00 Nasal Cannula* 2 28 Total Intake and Output 03/10/25 03/10/25 03/11/25 15:00 23:00 07:00 Intake Total 0 ml 240 ml Output Total 1100 ml Balance 0 ml -860 ml medications Current Medications Medications Dose Ordered Sig/Rodney Route Start Time Stop Time Status Last Admin Dose Admin Acetaminophen/ Hydrocodone Bitart 1 tab Q4HP PRN PO 03/10/25 08:15 03/10/25 10:47 1 TAB Ondansetron HCl 4 mg Q4HP PRN IV 03/10/25 08:15 Acetaminophen 650 mg Q6HP PRN PO 03/10/25 08:15 Morphine Sulfate 2 mg Q4HPRN PRN IV 03/10/25 08:15 03/11/25 01:08 2 MG Nitroglycerin 0.4 mg Q5MINP PRN SL 03/10/25 08:15 Morphine Sulfate 2 mg Q30M PRN IV 03/10/25 08:15 Nicotine 1 patch DAILY TD 03/10/25 10:00 03/11/25 10:26 1 PATCH Amlodipine Besylate 10 mg DAILY PO 03/10/25 10:00 03/11/25 10:24 10 MG Aspirin 81 mg DAILY PO 03/10/25 10:00 03/11/25 10:24 81 MG Atorvastatin Calcium 40 mg HS PO 03/10/25 22:00 03/10/25 21:00 40 MG Carvedilol 25 mg Q12HR PO 03/10/25 10:00 Hold Clopidogrel Bisulfate 75 mg DAILY PO 03/10/25 10:00 03/11/25 10:24 75 MG Empaglifozin 10 mg QAM PO 03/11/25 07:00 03/11/25 06:20 10 MG Sacubitril/ Valsartan 1 tab BID PO 03/10/25 10:00 03/11/25 10:24 1 TAB Diagnostic Test (Pha) 1 strip ACHS 03/10/25 11:30 03/11/25 06:32 1 STRIP Insulin Human Regular ACHS SC 03/10/25 11:30 03/11/25 06:32 2 UNITS Dextrose 50 ml UD PRN IV 03/10/25 08:15 Furosemide 40 mg BIDD IV 03/10/25 18:00 03/11/25 06:20 40 MG Albuterol 2.5 mg Q4HWA NEB 03/10/25 14:00 03/11/25 09:56 2.5 MG Examination: LUNGS:Abnormal (Bibasilar crackles), CVS:Normal (NSR), NEURO:Normal laboratory and microbiology Laboratory Tests 03/11/25 06:33 Test 03/11/25 06:33 Range/Units Serum Glucose 148 H 74-106 mg/dL Problem List/Assessment/Plan Problem List/Assessment/Plan Acute on chronic unspecified heart failure Ischemic cardiomyopathy NSTEMI, likely type II secondary to above Artery disease status post PTCA with a stent placement to the LAD (12/2021) Hypertension Dyslipidemia Pre-diabetes Nicotine dependance Medical non-compliance Morbid obesity Plan/Recommendation (Dr. Molina) Thoracic echocardiogram revealed LVEF 50-55% with abnormal relaxation of the left ventricle. Clinical presentation likely secondary to acute CHF exacerbation. The patient reports stopping all of her home medications including lasix therapy for approximately one week. Continue preload and afterload reduction, strict I&Os, daily weight, and fluid restriction. Continue nicotine patch. Given continuos complains of chest pain, the patient is scheduled for inpatient stress test. Strongly counseled on medical compliance and tobacco use cessation. Rest of plan per clinical course. Thank you for allowing us to participate in this patient's care. Please call if you have any questions or concerns. This medical document was created using an electronic medical record system with voice recognition software and computerized dictation system. Although this document has been carefully reviewed, there might still be some phonetic and typographical errors. Occasional wrong-word or ``sound-alike substitutions may have occurred due to the inherent limitations of voice recognition software. These areas are purely typographical due to imperfections of the software programs and do not reflect any compromise in the patient's medical care. Please read the chart carefully and recognize, using context, where these substitutions have occurred. Plan discussed with: Patient, Other Date of Service: March 11, 2025 Billing Provider: LORY SRIVASTAVA Cardiology Common Codes: [id number] HOSP CARE(High LORY SRIVASTAVA March 11, 2025 11:48
--- NOTE | 2025-03-11 13:28 | DVHPN2 ---
Reviewed: Care Plan, H&P, Labs, Medications, Previous Orders, Radiology Changes from previous H/P or p: No Changes Eyes: No Pain, No Vision change, No Conjunctivae inflammation, No Eyelid inflammation, No Other, No Redness ENT: No Ear pain, No Ear discharge, No Nose pain, No Nose discharge, No Nose congestion, No Mouth pain, No Mouth swelling, No Throat pain, No Throat swelling, No Other Cardiovascular: Chest Pain; No Palpitations; Orthopnea; No Paroxysmal Noc. Dyspnea, No Edema, No Lt Headedness, No Other Respiratory: No Cough, No Dry; Shortness of breath; No SOB with excertion, No Wheezing, No Hemoptysis, No Pleuritic Pain, No Sputum, No Other Gastrointestinal: No Nausea, No Vomiting, No Abdominal Pain, No Diarrhea, No Constipation, No Melena, No Hematochezia, No Other Genitourinary: No Dysuria, No Frequency, No Incontinence, No Hematuria, No Retention, No Other Musculoskeletal: No other, No neck pain, No shoulder pain, No arm pain, No back pain, No hand pain, No leg pain, No foot pain Skin: No Rash, No Lesions, No Jaundice, No Bruising, No Other Objective Vitals Vital Signs Date Time Temp Pulse Resp B/P (MAP) Pulse Ox O2 Delivery O2 Flow Rate FiO2 03/11/25 10:24 128/65 03/11/25 10:06 74 20 100 03/11/25 09:28 97.7 97.7 03/10/25 20:00 Nasal Cannula* 2 28 Intake/Output Intake and Output 03/11/25 07:00 Intake Total 240 ml Output Total 1100 ml Balance -860 ml Intake Oral 240 ml Output Urine Total 1100 ml Medications Current Medications Medications Dose Ordered Sig/Rodney Route Start Time Stop Time Status Last Admin Dose Admin Acetaminophen/ Hydrocodone Bitart 1 tab Q4HP PRN PO 03/10/25 08:15 03/10/25 10:47 1 TAB Ondansetron HCl 4 mg Q4HP PRN IV 03/10/25 08:15 Acetaminophen 650 mg Q6HP PRN PO 03/10/25 08:15 Morphine Sulfate 2 mg Q4HPRN PRN IV 03/10/25 08:15 03/11/25 01:08 2 MG Nitroglycerin 0.4 mg Q5MINP PRN SL 03/10/25 08:15 Morphine Sulfate 2 mg Q30M PRN IV 03/10/25 08:15 Nicotine 1 patch DAILY TD 03/10/25 10:00 03/11/25 10:26 1 PATCH Amlodipine Besylate 10 mg DAILY PO 03/10/25 10:00 03/11/25 10:24 10 MG Aspirin 81 mg DAILY PO 03/10/25 10:00 03/11/25 10:24 81 MG Atorvastatin Calcium 40 mg HS PO 03/10/25 22:00 03/10/25 21:00 40 MG Carvedilol 25 mg Q12HR PO 03/10/25 10:00 Hold Clopidogrel Bisulfate 75 mg DAILY PO 03/10/25 10:00 03/11/25 10:24 75 MG Empaglifozin 10 mg QAM PO 03/11/25 07:00 03/11/25 06:20 10 MG Sacubitril/ Valsartan 1 tab BID PO 03/10/25 10:00 03/11/25 10:24 1 TAB Diagnostic Test (Pha) 1 strip ACHS 03/10/25 11:30 03/11/25 12:59 1 STRIP Insulin Human Regular ACHS SC 03/10/25 11:30 03/11/25 13:03 3 UNITS Dextrose 50 ml UD PRN IV 03/10/25 08:15 Furosemide 40 mg BIDD IV 03/10/25 18:00 03/11/25 06:20 40 MG Albuterol 2.5 mg Q4HWA NEB 03/10/25 14:00 03/11/25 09:56 2.5 MG Laboratory Results Laboratory Tests 03/11/25 06:33 Chemistry Test 03/11/25 06:33 Albumin 4.3 g/dL (3.2-4.8) Calcium Level 9.6 mg/dL (8.7-10.4) Total Protein 7.1 g/dL (5.7-8.2) LFT Test 03/11/25 06:33 Alanine Aminotransferase (ALT) 15 U/L (7-40) Alkaline Phosphatase 98 U/L (46-116) Aspartate Amino Transferase (AST) 13 U/L (13-40) Total Bilirubin 0.3 mg/dL (0.2-1.0) Urinalysis Test 5/26/25 02:25 Urine Color Yellow (Yellow) Urine Clarity Clear (Clear) Urine pH 6.0 (5.0-9.0) Urine Specific [place]ira 1.022 (1.001-1.035) Urine Protein 2+ (Negative) H Urine Ketones Negative (Negative) Urine Blood 1+ /uL (Negative) H Urine Nitrite Negative (Negative) Urine Bilirubin Negative (Negative) Urine Urobilinogen Normal mg/dL (Negative) Urine Leukocyte Esterase Negative /uL (Negative) Urine RBC 1 /hpf (0 - 4) Urine Microscopic WBC 1 /HPF (0-5) Urine Squamous Epithelial Cells Few /hpf (<5) Urine Bacteria None seen /hpf (None Seen) Urine Glucose Normal mg/dL (Normal) Labs and/or images reviewed: Labs reviewed by me, Image(s) reviewed by me Assessment/Plan Assessment/Plan Acute on chronic unspecified heart failure: Consult by Cardiology Dr. Molina appreciated Ischemic cardiomyopathy NSTEMI, likely type II secondary to above Coronary Artery disease status post PTCA with a stent placement to the LAD (12/2021) Hypertension Dyslipidemia D-dimer elevated 2.64, PE ruled out Pre-diabetes Nicotine dependance counseling Medical non-compliance Morbid obesity Scheduled for stress test by Cardiology Plan discussed with: Patient Date of Service: March 11, 2025 Billing Provider: FRIDA KENNEDY MD Common Visit Codes: [id number] INP/OBS CARE(HIGH) FRIDA KENNEDY MD March 11, 2025 13:28
[2025-03-12] VITALS (14 sets, daily range): BP systolic 124–156; BP diastolic 75–96; PULSE 59–87; RESP 16–18; TEMP 97.7–98.2; O2SAT 97–100
[2025-03-12] MEDS: LORazepam 2MG/ML-1ML VIAL IV ONE (11:44)
[2025-03-12] MEDS: REGADENOSON 0.4 MG/5 ML SYRG IV ONE ×2 (12:12→12:18)
--- NOTE | 2025-03-12 13:18 | DVHPN2 ---
Reviewed: Care Plan, H&P, Labs, Medications, Previous Orders, Radiology Changes from previous H/P or p: No Changes Eyes: No Pain, No Vision change, No Conjunctivae inflammation, No Eyelid inflammation, No Other, No Redness ENT: No Ear pain, No Ear discharge, No Nose pain, No Nose discharge, No Nose congestion, No Mouth pain, No Mouth swelling, No Throat pain, No Throat swelling, No Other Cardiovascular: Chest Pain; No Palpitations; Orthopnea; No Paroxysmal Noc. Dyspnea, No Edema, No Lt Headedness, No Other Respiratory: No Cough, No Dry; Shortness of breath; No SOB with excertion, No Wheezing, No Hemoptysis, No Pleuritic Pain, No Sputum, No Other Gastrointestinal: No Nausea, No Vomiting, No Abdominal Pain, No Diarrhea, No Constipation, No Melena, No Hematochezia, No Other Genitourinary: No Dysuria, No Frequency, No Incontinence, No Hematuria, No Retention, No Other Musculoskeletal: No other, No neck pain, No shoulder pain, No arm pain, No back pain, No hand pain, No leg pain, No foot pain Skin: No Rash, No Lesions, No Jaundice, No Bruising, No Other Objective Vitals Vital Signs Date Time Temp Pulse Resp B/P (MAP) Pulse Ox O2 Delivery O2 Flow Rate FiO2 03/12/25 11:28 99 Room Air 0.0 03/12/25 11:28 21 03/12/25 08:59 98.2 63 16 145/90 (108) 98.2 Intake/Output Intake and Output 03/12/25 06:59 Intake Total 800 ml Output Total 2250 ml Balance -1450 ml Intake Oral 800 ml Output Urine Total 2250 ml # Voids 2 # Bowel Movements 1 Medications Current Medications Medications Dose Ordered Sig/Rodney Route Start Time Stop Time Status Last Admin Dose Admin Acetaminophen/ Hydrocodone Bitart 1 tab Q4HP PRN PO 03/10/25 08:15 03/12/25 00:42 1 TAB Ondansetron HCl 4 mg Q4HP PRN IV 03/10/25 08:15 Acetaminophen 650 mg Q6HP PRN PO 03/10/25 08:15 Morphine Sulfate 2 mg Q4HPRN PRN IV 03/10/25 08:15 03/11/25 01:08 2 MG Nitroglycerin 0.4 mg Q5MINP PRN SL 03/10/25 08:15 Morphine Sulfate 2 mg Q30M PRN IV 03/10/25 08:15 Nicotine 1 patch DAILY TD 03/10/25 10:00 03/11/25 10:26 1 PATCH Amlodipine Besylate 10 mg DAILY PO 03/10/25 10:00 03/11/25 10:24 10 MG Aspirin 81 mg DAILY PO 03/10/25 10:00 03/11/25 10:24 81 MG Atorvastatin Calcium 40 mg HS PO 03/10/25 22:00 03/11/25 22:30 40 MG Carvedilol 25 mg Q12HR PO 03/10/25 10:00 Hold Clopidogrel Bisulfate 75 mg DAILY PO 03/10/25 10:00 03/11/25 10:24 75 MG Empaglifozin 10 mg QAM PO 03/11/25 07:00 03/12/25 06:06 10 MG Sacubitril/ Valsartan 1 tab BID PO 03/10/25 10:00 03/11/25 22:29 1 TAB Diagnostic Test (Pha) 1 strip ACHS 03/10/25 11:30 03/12/25 06:08 1 STRIP Insulin Human Regular ACHS SC 03/10/25 11:30 03/11/25 22:27 3 UNITS Dextrose 50 ml UD PRN IV 03/10/25 08:15 Furosemide 40 mg BIDD IV 03/10/25 18:00 03/11/25 06:20 40 MG Albuterol 2.5 mg Q4HWA NEB 03/10/25 14:00 03/11/25 22:00 2.5 MG Laboratory Results Laboratory Tests 03/11/25 06:33 Urinalysis Test 03/11/25 02:25 Urine Color Yellow (Yellow) Urine Clarity Clear (Clear) Urine pH 6.0 (5.0-9.0) Urine Specific [place] 1.022 (1.001-1.035) Urine Protein 2+ (Negative) H Urine Ketones Negative (Negative) Urine Blood 1+ /uL (Negative) H Urine Nitrite Negative (Negative) Urine Bilirubin Negative (Negative) Urine Urobilinogen Normal mg/dL (Negative) Urine Leukocyte Esterase Negative /uL (Negative) Urine RBC 1 /hpf (0 - 4) Urine Microscopic WBC 1 /HPF (0-5) Urine Squamous Epithelial Cells Few /hpf (<5) Urine Bacteria None seen /hpf (None Seen) Urine Glucose Normal mg/dL (Normal) Labs and/or images reviewed: Labs reviewed by me, Image(s) reviewed by me Assessment/Plan Assessment/Plan Acute on chronic unspecified heart failure: Consult by Cardiology Dr. oMlina appreciated Ischemic cardiomyopathy NSTEMI, likely type II secondary to above Coronary Artery disease status post PTCA with a stent placement to the LAD (12/2021) Hypertension Dyslipidemia D-dimer elevated 2.64, PE ruled out Pre-diabetes Nicotine dependance counseling Medical non-compliance Morbid obesity Patient Getting Cardiolite stress test today Plan discussed with: Patient Date of Service: March 12, 2025 Billing Provider: FRIDA KENNEDY MD Common Visit Codes: [id number] INP/OBS CARE(HIGH) FRIDA KENNEDY MD March 12, 2025 13:18
[2025-03-12] MEDS: CARISOPRODOL 350 MG TAB PO SCH (20:18)
[2025-03-12] MEDS: NITROGLYCERIN 0.4 MG SL TAB SL PRN (20:20)
[2025-03-13] VITALS (18 sets, daily range): BP systolic 118–160; BP diastolic 70–94; PULSE 72–91; RESP 16–19; TEMP 97.3–98.2; O2SAT 92–100
--- NOTE | 2025-03-13 11:50 | DVHPN2 ---
Consult Progress Note Date Seen: March 13, 2025 Subjective Review of Systems: CVS:Normal, RESPIRATORY:Normal, NEURO:Normal Objective vital signs Vital Sign Date Time Temp Pulse Resp B/P (MAP) Pulse Ox O2 Delivery O2 Flow Rate FiO2 03/13/25 10:58 76 18 100 03/13/25 10:52 Room Air* 0 21 03/13/25 10:00 118/70 03/13/25 08:00 98.2 98.2 Total Intake and Output 03/12/25 03/12/25 03/13/25 15:00 23:00 07:00 Intake Total 650 ml 725 ml Output Total 1250 ml 2500 ml Balance -600 ml -1775 ml medications Current Medications Medications Dose Ordered Sig/Rodney Route Start Time Stop Time Status Last Admin Dose Admin Acetaminophen/ Hydrocodone Bitart 1 tab Q4HP PRN PO 03/10/25 08:15 03/13/25 06:24 1 TAB Ondansetron HCl 4 mg Q4HP PRN IV 03/10/25 08:15 Acetaminophen 650 mg Q6HP PRN PO 03/10/25 08:15 Morphine Sulfate 2 mg Q4HPRN PRN IV 03/10/25 08:15 03/11/25 01:08 2 MG Nitroglycerin 0.4 mg Q5MINP PRN SL 03/10/25 08:15 03/12/25 20:20 0.4 MG Morphine Sulfate 2 mg Q30M PRN IV 03/10/25 08:15 Nicotine 1 patch DAILY TD 03/10/25 10:00 03/11/25 10:26 1 PATCH Amlodipine Besylate 10 mg DAILY PO 03/10/25 10:00 03/11/25 10:24 10 MG Aspirin 81 mg DAILY PO 03/10/25 10:00 03/13/25 11:17 81 MG Atorvastatin Calcium 40 mg HS PO 03/10/25 22:00 03/12/25 21:38 40 MG Carvedilol 25 mg Q12HR PO 03/10/25 10:00 Hold Clopidogrel Bisulfate 75 mg DAILY PO 03/10/25 10:00 03/13/25 11:17 75 MG Empaglifozin 10 mg QAM PO 03/11/25 07:00 03/13/25 06:24 10 MG Sacubitril/ Valsartan 1 tab BID PO 03/10/25 10:00 03/13/25 11:17 1 TAB Diagnostic Test (Pha) 1 strip ACHS 03/10/25 11:30 03/13/25 11:20 1 STRIP Insulin Human Regular ACHS SC 03/10/25 11:30 03/12/25 21:41 3 UNITS Dextrose 50 ml UD PRN IV 03/10/25 08:15 Furosemide 40 mg BIDD IV 03/10/25 18:00 03/13/25 06:29 40 MG Albuterol 2.5 mg Q4HWA NEB 03/10/25 14:00 03/13/25 10:52 2.5 MG Carisoprodol 350 mg Q8H PO 03/12/25 20:15 03/13/25 05:10 350 MG Examination: LUNGS:Normal, CVS:Normal, NEURO:Normal laboratory and microbiology Laboratory Tests 03/11/25 06:33 Test 03/11/25 06:33 Range/Units Serum Glucose 148 H 74-106 mg/dL Problem List/Assessment/Plan Problem List/Assessment/Plan Acute on chronic decompensated HFpEF Ischemic cardiomyopathy NSTEMI, likely type II secondary to above Coronary artery disease status post PTCA with a stent placement to the LAD (12/2021) Hypertension Dyslipidemia Pre-diabetes Nicotine dependance Medical non-compliance Morbid obesity Plan/Recommendation (Dr. Garcia) Thoracic echocardiogram revealed LVEF 50-55% with abnormal relaxation of the left ventricle. Clinical presentation likely secondary to acute CHF exacerbation. The patient reports stopping all of her home medications including lasix therapy for approximately one week. Continue preload and afterload reduction, strict I&Os, daily weight, and fluid restriction. Continue nicotine patch. Given continuos complains of chest pain, the patient underwent a cardiolite stress test with preliminary results read by Dr. Garcia as ischemic. Scheduled for a cardiac catheterization and coronary angiogram on 03/13/25. All risks and benefits of the procedure with the patient agreeing to proceed with intervention. All questions answered. Strongly counseled on medical compliance and tobacco use cessation. Rest of plan per clinical course. Thank you for allowing us to participate in this patient's care. Please call if you have any questions or concerns. This medical document was created using an electronic medical record system with voice recognition software and computerized dictation system. Although this document has been carefully reviewed, there might still be some phonetic and typographical errors. Occasional wrong-word or ``sound-alike substitutions may have occurred due to the inherent limitations of voice recognition software. These areas are purely typographical due to imperfections of the software programs and do not reflect any compromise in the patient's medical care. Please read the chart carefully and recognize, using context, where these substitutions have occurred. Plan discussed with: Patient, Other Date of Service: March 13, 2025 Billing Provider: LORY SRIVASTAVA Cardiology Common Codes: [id number] HOSP CARE(High LORY SRIVASTAVA March 13, 2025 11:50
[2025-03-13 13:12] LABS: Basophils # (auto) 0 10 ^3/uL (0-0.2); Basophils % (auto) 0.5 % (0.0-2.0); Lymphocytes # (auto) 1.5 10 ^3/uL (0.4-5.4); Monocytes # (auto) 0.6 10 ^3/uL (0-1.3); Red Cell Distribution Width 18.6 % (11.8-14.3)
[2025-03-13 13:14] LABS: Eosinophils # (auto) 0 10 ^3/uL (0-0.8); Eosinophils % (auto) 0.8 % (0.0-7.0); Hematocrit 40.1 % (36.0-46.0); Hemoglobin 12.8 g/dL (12.2-16.2); Lymphocytes % (auto) 26.2 % (10.0-50.0); Mean Corpuscular Hgb Conc. 31.9 g/dL (32.0-36.0); Mean Corpuscular Volume 78.4 fL (80.0-100.0); Monocytes % (auto) 10.6 % (0.0-12.0); Neutrophils # (auto) 3.6 10 ^3/uL (1.6-8.6); Neutrophils % (auto) 61.9 % (37.0-80.0); Platelet Count (auto) 300 10^3/uL (140-450); Red Blood Cells 5.11 10^6/uL (4.0-5.20); White Blood Cell 5.8 10^3/uL (4.4-10.8)
[2025-03-13 13:18] LABS: Anion Gap 6 (5-15); Carbon Dioxide 30 mmol/L (20-31); Chloride 105 mmol/L (98-107); Potassium 3.9 mmol/L (3.5-5.1); Sodium 141 mmol/L (136-145)
[2025-03-13 13:19] LABS: Calcium 10.3 mg/dL (8.7-10.4)
[2025-03-13 13:22] LABS: INR 0.88 (0.9-1.15); Partial Thromboplastin Time 25.7 SEC (24.5-34.5); Prothrombin Time 9.4 sec (9.3-11.8)
[2025-03-13 13:24] LABS: Blood Urea Nitrogen 16 mg/dL (9-23); Glucose 94 mg/dL (74-106)
--- NOTE | 2025-03-13 13:37 | DVHPN2 ---
Reviewed: Care Plan, H&P, Labs, Medications, Previous Orders, Radiology Changes from previous H/P or p: No Changes Eyes: No Pain, No Vision change, No Conjunctivae inflammation, No Eyelid inflammation, No Other, No Redness ENT: No Ear pain, No Ear discharge, No Nose pain, No Nose discharge, No Nose congestion, No Mouth pain, No Mouth swelling, No Throat pain, No Throat swelling, No Other Cardiovascular: Chest Pain; No Palpitations; Orthopnea; No Paroxysmal Noc. Dyspnea, No Edema, No Lt Headedness, No Other Respiratory: No Cough, No Dry; Shortness of breath; No SOB with excertion, No Wheezing, No Hemoptysis, No Pleuritic Pain, No Sputum, No Other Gastrointestinal: No Nausea, No Vomiting, No Abdominal Pain, No Diarrhea, No Constipation, No Melena, No Hematochezia, No Other Genitourinary: No Dysuria, No Frequency, No Incontinence, No Hematuria, No Retention, No Other Musculoskeletal: No other, No neck pain, No shoulder pain, No arm pain, No back pain, No hand pain, No leg pain, No foot pain Skin: No Rash, No Lesions, No Jaundice, No Bruising, No Other Objective Vitals Vital Signs Date Time Temp Pulse Resp B/P (MAP) Pulse Ox O2 Delivery O2 Flow Rate FiO2 03/13/25 10:58 76 18 100 03/13/25 10:52 Room Air* 0 21 03/13/25 10:00 118/70 03/13/25 08:00 98.2 98.2 Intake/Output Intake and Output 03/13/25 07:00 Intake Total 1375 ml Output Total 3750 ml Balance -2375 ml Intake Oral 1375 ml Output Urine Total 3750 ml Medications Current Medications Medications Dose Ordered Sig/Rodney Route Start Time Stop Time Status Last Admin Dose Admin Acetaminophen/ Hydrocodone Bitart 1 tab Q4HP PRN PO 03/10/25 08:15 03/13/25 12:10 1 TAB Ondansetron HCl 4 mg Q4HP PRN IV 03/10/25 08:15 Acetaminophen 650 mg Q6HP PRN PO 03/10/25 08:15 Morphine Sulfate 2 mg Q4HPRN PRN IV 03/10/25 08:15 03/11/25 01:08 2 MG Nitroglycerin 0.4 mg Q5MINP PRN SL 5/25/25 08:15 03/12/25 20:20 0.4 MG Morphine Sulfate 2 mg Q30M PRN IV 03/10/25 08:15 Nicotine 1 patch DAILY TD 03/10/25 10:00 03/11/25 10:26 1 PATCH Amlodipine Besylate 10 mg DAILY PO 03/10/25 10:00 03/11/25 10:24 10 MG Aspirin 81 mg DAILY PO 03/10/25 10:00 03/13/25 11:17 81 MG Atorvastatin Calcium 40 mg HS PO 03/10/25 22:00 03/12/25 21:38 40 MG Carvedilol 25 mg Q12HR PO 03/10/25 10:00 Hold Clopidogrel Bisulfate 75 mg DAILY PO 03/10/25 10:00 03/13/25 11:17 75 MG Empaglifozin 10 mg QAM PO 03/11/25 07:00 03/13/25 06:24 10 MG Sacubitril/ Valsartan 1 tab BID PO 03/10/25 10:00 03/13/25 11:17 1 TAB Diagnostic Test (Pha) 1 strip ACHS 03/10/25 11:30 03/13/25 11:20 1 STRIP Insulin Human Regular ACHS SC 03/10/25 11:30 03/12/25 21:41 3 UNITS Dextrose 50 ml UD PRN IV 03/10/25 08:15 Furosemide 40 mg BIDD IV 03/10/25 18:00 03/13/25 06:29 40 MG Albuterol 2.5 mg Q4HWA NEB 03/10/25 14:00 03/13/25 10:52 2.5 MG Carisoprodol 350 mg Q8H PO 03/12/25 20:15 03/13/25 12:08 350 MG Laboratory Results Laboratory Tests 03/13/25 12:50 Chemistry Test 03/13/25 12:50 Calcium Level 10.3 mg/dL (8.7-10.4) Coagulation Test 03/13/25 12:50 Prothrombin Time 9.4 sec (9.3-11.8) Prothrombin Time INR 0.88 (0.9-1.15) L Activated Partial Thromboplast Time 25.7 SEC (24.5-34.5) Urinalysis Test 03/11/25 02:25 Urine Color Yellow (Yellow) Urine Clarity Clear (Clear) Urine pH 6.0 (5.0-9.0) Urine Specific [place] 1.022 (1.001-1.035) Urine Protein 2+ (Negative) H Urine Ketones Negative (Negative) Urine Blood 1+ /uL (Negative) H Urine Nitrite Negative (Negative) Urine Bilirubin Negative (Negative) Urine Urobilinogen Normal mg/dL (Negative) Urine Leukocyte Esterase Negative /uL (Negative) Urine RBC 1 /hpf (0 - 4) Urine Microscopic WBC 1 /HPF (0-5) Urine Squamous Epithelial Cells Few /hpf (<5) Urine Bacteria None seen /hpf (None Seen) Urine Glucose Normal mg/dL (Normal) Labs and/or images reviewed: Labs reviewed by me, Image(s) reviewed by me Assessment/Plan Assessment/Plan Acute on chronic unspecified heart failure: Consult by Cardiology Dr. Molina appreciated Ischemic cardiomyopathy Cardiolite stress test positive, scheduled for left heart catheterization by Dr. Garcia NSTEMI, likely type II secondary to above Coronary Artery disease status post PTCA with a stent placement to the LAD (12/2021) Hypertension Dyslipidemia D-dimer elevated 2.64, PE ruled out Pre-diabetes Nicotine dependance counseling Medical non-compliance Morbid obesity Patient Getting Cardiolite stress test today Plan discussed with: Patient Date of Service: March 13, 2025 Billing Provider: FRIDA KENNEDY MD Common Visit Codes: [id number] INP/OBS CARE(HIGH) FRIDA KENNEDY MD March 13, 2025 13:37
[2025-03-13] MEDS: NICOTINE 7MG/24HR TOPICAL PATCH TD ONE (19:15)
[2025-03-13] MEDS: TEMAZEPAM 15 MG CAP PO ONE (23:09)
[2025-03-14] VITALS (20 sets, daily range): BP systolic 106–153; BP diastolic 63–99; PULSE 68–87; RESP 12–19; TEMP 95.1–98.6; O2SAT 92–100
[2025-03-14 07:33] LABS: Basophils # (auto) 0 10 ^3/uL (0-0.2); Basophils % (auto) 0.5 % (0.0-2.0); Eosinophils # (auto) 0.1 10 ^3/uL (0-0.8); Eosinophils % (auto) 2.2 % (0.0-7.0); Hematocrit 38.4 % (36.0-46.0); Hemoglobin 12.4 g/dL (12.2-16.2); Lymphocytes # (auto) 1.7 10 ^3/uL (0.4-5.4); Lymphocytes % (auto) 33.2 % (10.0-50.0); Mean Corpuscular Hemoglobin 25.1 pg (28.0-32.0); Mean Corpuscular Hgb Conc. 32.2 g/dL (32.0-36.0); Mean Corpuscular Volume 77.9 fL (80.0-100.0); Monocytes # (auto) 0.6 10 ^3/uL (0-1.3); Neutrophils # (auto) 2.8 10 ^3/uL (1.6-8.6); Neutrophils % (auto) 53.1 % (37.0-80.0); Nucleated Red Blood Cells % 0.1 %; Platelet Count (auto) 306 10^3/uL (140-450); Red Blood Cells 4.93 10^6/uL (4.0-5.20); Red Cell Distribution Width 18.2 % (11.8-14.3); White Blood Cell 5.3 10^3/uL (4.4-10.8)
[2025-03-14 07:42] LABS: Anion Gap 9 (5-15); Calcium 9.9 mg/dL (8.7-10.4); Carbon Dioxide 27 mmol/L (20-31); Chloride 105 mmol/L (98-107); Potassium 3.6 mmol/L (3.5-5.1); Sodium 141 mmol/L (136-145)
[2025-03-14 07:48] LABS: BUN/Creatinine Ratio 18.4 (10.0-20.0); Blood Urea Nitrogen 23 mg/dL (9-23)
[2025-03-14 07:50] LABS: Glucose 118 mg/dL (74-106)
--- NOTE | 2025-03-14 07:57 | ECG ---
[facility] Test Date: 2025-03-12 Test Time: 19:44:31 Pat Name: [facility] Department: Room: 0293T A Gender: F Department Mgr: : 1970 Requested By: FRIDA KENNEDY Order Number: [id number] Reading MD: Pierce Garcia Measurements Intervals [place] Rate: 86 P: 53 MA: 159 QRS: -22 QRSD: 119 T: 177 QT: 379 QTc: 454 Interpretive Statements Sinus rhythm Probable left atrial enlargement LVH with IVCD and secondary repol abnrm Inferior infarct, old Electronically Signed On 03-17-2025 22:48:14 PDT by Pierce Garcia Please click the below link to view image of tracing.
--- NOTE | 2025-03-14 11:24 | DVHSR ---
APPROVED REPORT Exam: Nuclear Stress Test Indication: chest pain BMI: 0 Medical History Medical History: Acute on chronic HF. Ischemic cardiomopathy, NSTEMI, CAD S/P PCTA with stent to the LAD (12/2021), HTN, DLD, Nicotine dependence, morbid obesity Stress Test Details Stress Test: Pharmacologic stress testing performed using 0.4 mg of regadenoson per 5 mL given IV ov er 10 seconds. HR Resting HR: 70 bpmMax Heart Rate (APMHR): 166.598319 bpm Max HR Achieved: 83 bpmTarget HR (85% APMHR): 141.033551 bpm % of APMHR: 50.00 Recovery HR: 74 bpm BP Resting BP: 146/86 mmHg Recovery BP: 122/70 mmHg ECG Resting ECG: Sinus Rhythm Clinical Reason for Termination: Completed protocol Stress ECG Conclusion lvef 38% moderate to sever LV dysfunction full thickness scar of inferolateral wall infarct apical infarct no severe ischemia noted TWI on ecg pattern NM EXAM: Myocardial Perfusion REST/STRESS Imaging Protocol: Rest Tc-99m/Stress Tc-99m 1 day Resting Data Rest SPECT myocardial perfusion imaging was performed in supine position 60 minutes following the int ravenous injection of 11.0 mCi of Tc-99m Sestamibi. Time of rest injection: 07:56 Date: 03/12/2025 Time of rest imagin:56 Date: 03/12/2025 Administration Route: IV Administration Site: Left Arm Pharmacologic Stress Pharmacologic stress test was performed by injecting Regadenoson 0.4 mg IV push followed by the intra venous injection of 34.2 mCi of Tc-99m Sestamibi. Time of stress injection: 12:20 Date: 03/12/2025 Time of stress imagin:20 Date: 03/12/2025 Administration Route: IV Administration Site: Left Arm Gated Stress SPECT was performed 60 minutes after stress injection. The images were gated to evaluate regional wall motion and calculate left ventricular ejection fracti on. Stress only was performed in the Supine position. Nuclear Conclusion Nuclear Findings: negative for ischemia lvef 38% moderate to sever LV dysfunction full thickness scar of inferolateral wall infarct apical infarct no severe ischemia noted TWI on ecg pattern
--- NOTE | 2025-03-14 13:02 | DVHPN2 ---
Reviewed: Care Plan, H&P, Labs, Medications, Previous Orders, Radiology Changes from previous H/P or p: No Changes Eyes: No Pain, No Vision change, No Conjunctivae inflammation, No Eyelid inflammation, No Other, No Redness ENT: No Ear pain, No Ear discharge, No Nose pain, No Nose discharge, No Nose congestion, No Mouth pain, No Mouth swelling, No Throat pain, No Throat swelling, No Other Cardiovascular: Chest Pain; No Palpitations; Orthopnea; No Paroxysmal Noc. Dyspnea, No Edema, No Lt Headedness, No Other Respiratory: No Cough, No Dry; Shortness of breath; No SOB with excertion, No Wheezing, No Hemoptysis, No Pleuritic Pain, No Sputum, No Other Gastrointestinal: No Nausea, No Vomiting, No Abdominal Pain, No Diarrhea, No Constipation, No Melena, No Hematochezia, No Other Genitourinary: No Dysuria, No Frequency, No Incontinence, No Hematuria, No Retention, No Other Musculoskeletal: No other, No neck pain, No shoulder pain, No arm pain, No back pain, No hand pain, No leg pain, No foot pain Skin: No Rash, No Lesions, No Jaundice, No Bruising, No Other Objective Vitals Vital Signs Date Time Temp Pulse Resp B/P (MAP) Pulse Ox O2 Delivery O2 Flow Rate FiO2 03/14/25 10:28 74 17 96 03/14/25 10:22 Room Air* 0 21 03/14/25 09:18 96.4 120/83 (95) 96.4 Intake/Output Intake and Output 03/14/25 07:00 Intake Total 1180 ml Output Total 2200 ml Balance -1020 ml Intake Oral 1180 ml Output Urine Total 2200 ml Medications Current Medications Medications Dose Ordered Sig/Rodney Route Start Time Stop Time Status Last Admin Dose Admin Acetaminophen/ Hydrocodone Bitart 1 tab Q4HP PRN PO 03/10/25 08:15 03/14/25 12:45 1 TAB Ondansetron HCl 4 mg Q4HP PRN IV 03/10/25 08:15 Acetaminophen 650 mg Q6HP PRN PO 03/10/25 08:15 Morphine Sulfate 2 mg Q4HPRN PRN IV 03/10/25 08:15 03/11/25 01:08 2 MG Nitroglycerin 0.4 mg Q5MINP PRN SL 03/10/25 08:15 03/12/25 20:20 0.4 MG Morphine Sulfate 2 mg Q30M PRN IV 03/10/25 08:15 Nicotine 1 patch DAILY TD 03/10/25 10:00 03/11/25 10:26 1 PATCH Amlodipine Besylate 10 mg DAILY PO 03/10/25 10:00 03/11/25 10:24 10 MG Aspirin 81 mg DAILY PO 03/10/25 10:00 03/13/25 11:17 81 MG Atorvastatin Calcium 40 mg HS PO 03/10/25 22:00 03/13/25 22:00 40 MG Carvedilol 25 mg Q12HR PO 03/10/25 10:00 Hold Clopidogrel Bisulfate 75 mg DAILY PO 03/10/25 10:00 03/13/25 11:17 75 MG Empaglifozin 10 mg QAM PO 03/11/25 07:00 03/13/25 06:24 10 MG Sacubitril/ Valsartan 1 tab BID PO 03/10/25 10:00 03/13/25 21:59 1 TAB Diagnostic Test (Pha) 1 strip ACHS 03/10/25 11:30 03/14/25 06:00 1 STRIP Insulin Human Regular ACHS SC 03/10/25 11:30 03/14/25 06:01 2 UNITS Dextrose 50 ml UD PRN IV 03/10/25 08:15 Furosemide 40 mg BIDD IV 03/10/25 18:00 03/14/25 05:54 40 MG Albuterol 2.5 mg Q4HWA NEB 03/10/25 14:00 03/14/25 10:22 2.5 MG Carisoprodol 350 mg Q8H PO 03/12/25 20:15 03/13/25 20:15 350 MG Laboratory Results Laboratory Tests 03/14/25 05:56 Chemistry Test 03/14/25 05:56 Calcium Level 9.9 mg/dL (8.7-10.4) Urinalysis Test 03/11/25 02:25 Urine Color Yellow (Yellow) Urine Clarity Clear (Clear) Urine pH 6.0 (5.0-9.0) Urine Specific [place] 1.022 (1.001-1.035) Urine Protein 2+ (Negative) H Urine Ketones Negative (Negative) Urine Blood 1+ /uL (Negative) H Urine Nitrite Negative (Negative) Urine Bilirubin Negative (Negative) Urine Urobilinogen Normal mg/dL (Negative) Urine Leukocyte Esterase Negative /uL (Negative) Urine RBC 1 /hpf (0 - 4) Urine Microscopic WBC 1 /HPF (0-5) Urine Squamous Epithelial Cells Few /hpf (<5) Urine Bacteria None seen /hpf (None Seen) Urine Glucose Normal mg/dL (Normal) Labs and/or images reviewed: Labs reviewed by me, Image(s) reviewed by me Assessment/Plan Assessment/Plan Acute on chronic unspecified heart failure: Consult by Cardiology Dr. Molina appreciated Ischemic cardiomyopathy Cardiolite stress test positive, scheduled for left heart catheterization by Dr. Garcia NSTEMI, likely type II secondary to above Coronary Artery disease status post PTCA with a stent placement to the LAD (12/2021) Hypertension Dyslipidemia D-dimer elevated 2.64, PE ruled out Pre-diabetes Nicotine dependance counseling Medical non-compliance Morbid obesity Patient Getting left heart catheterization today Plan discussed with: Patient Date of Service: March 14, 2025 Billing Provider: FRIDA KENNEDY MD Common Visit Codes: [id number] INP/OBS CARE(HIGH) FRIDA KENNEDY MD March 14, 2025 13:02
[2025-03-14] MEDS: ANGIOMAX 250 MG VIAL IV ONE (13:29)
[2025-03-14] MEDS: LIDOCAINE 2%HCL (LOCAL ANESTH.) INJ 20ML MDV ONE (13:30)
[2025-03-14] MEDS: SODIUM CHL 0.9% 0 ML ONE (13:30)
[2025-03-14] MEDS: MIDAZOLAM HCL 2MG/2ML 2ml VIAL (1mg/ml) ONE (13:30)
[2025-03-14] MEDS: HEPARIN SODIUM (PORCINE) 5000 UNITS/ML 1ML VIAL ONE (13:30)
[2025-03-14] MEDS: VERAPAMIL 2.5MG/ML INJ 2ML VIAL IV ONE (13:30)
[2025-03-14] MEDS: fentaNYL CITRATE 100 MCG/2 ML VL ONE (13:36)
[2025-03-14] MEDS: IODIXANOL 320MG/ML 100ML BTL IV ONE (13:50)
--- NOTE | 2025-03-14 14:20 | DVHOP2 ---
Operative Report - 2 Report Details Date: 03/14/25 Preop Diagnosis: CAD Postop Diagnosis: Normal coronaries Surgeon: Ysabel Garcia MD Anesthesiologist: Conscious sedation Anesthesia: Mac, Local Consent: The patient was informed of the risks and benefits of the procedure. These include but are not limited to complications of anesthesia, postoperative infection, incomplete relief of symptoms, recurrence of symptoms, damage to blood vessels, nerves and tendons, deep venous thrombosis, pulmonary embolism and possible need for repeat surgery in the future. Complications: No complications Findings: Normal coronaries Indications for Surgery: Chest pain abnormal EKG Name of Procedure Performed Left heart catheterization bilateral cine coronary angiography. Left ventriculography. Procedure Details Procedure Details: Prior local anesthesia with 2% lidocaine to the right groin and full informed consent obtained the patient was prepped and draped in usual fashion followed by placement of a six Yoruba sheath into the femoral artery. 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 A six Yoruba sheath was then advanced and Oscar catheter used to cannulate both right and left coronary ostia and for ventriculography. Patient tolerated the procedure well there were no complications Hemodynamics: Aortic blood pressure was 110/70. End-diastolic pressure was 15. There was no gradient across the aortic valve on pullback. Coronary anatomy RCA is nondominant vessel. Left main is large and normal. Left anterior descending is large and normal as all the diagonals which are free of significant disease. The circumflex is large with marginals that are normal Ventriculography was performed in the MAYNARD projection showing an EF of approximately 60-65%. Impression: Normal left ventricular end-diastolic pressure at rest. Normal ejection fraction. No significant coronary artery disease. Recommendations: Risk factor modification to continue. Condition Good Disposition Still a Patient Date of Service: March 14, 2025 Billing Provider: YSABEL GARCIA Sr., MD Cardiology Common Codes: [id number] INP/OBS CARE (High) Cardiology Procedure Codes: [id number] HEART CATH W/INTRA INJ YSABEL GARCIA Sr., MD March 14, 2025 14:20
[2025-03-15] VITALS (11 sets, daily range): BP systolic 108–153; BP diastolic 57–80; PULSE 60–77; RESP 16–18; TEMP 98–98.2; O2SAT 94–98
[2025-03-15 08:02] LABS: Alanine Aminotransferase 18 U/L (7-40); Albumin 4.1 g/dL (3.2-4.8); Alkaline Phosphatase 101 U/L (46-116); Anion Gap 7 (5-15); Aspartate Aminotransferase 14 U/L (13-40); BUN/Creatinine Ratio 18.8 (10.0-20.0); Blood Urea Nitrogen 21 mg/dL (9-23); Calcium 9.6 mg/dL (8.7-10.4); Carbon Dioxide 29 mmol/L (20-31); Chloride 104 mmol/L (98-107); Glucose 103 mg/dL (74-106); Potassium 3.6 mmol/L (3.5-5.1); Sodium 140 mmol/L (136-145); Total Protein 6.9 g/dL (5.7-8.2)
[2025-03-15 08:03] LABS: Bilirubin, Total 0.4 mg/dL (0.2-1.0)
[2025-03-15] MEDS: ACETAMINOPHEN 325 MG TAB PO PRN (09:42)
[2025-03-15] MEDS ORDERED: ALPR1TAB2 PO (11:25)
[2025-03-15] MEDS ORDERED: HYDR-4902 PO (11:25)
--- NOTE | 2025-03-15 11:30 | DVHPN2 ---
Reviewed: Care Plan, H&P, Labs, Medications, Previous Orders, Radiology Changes from previous H/P or p: No Changes Eyes: No Pain, No Vision change, No Conjunctivae inflammation, No Eyelid inflammation, No Other, No Redness ENT: No Ear pain, No Ear discharge, No Nose pain, No Nose discharge, No Nose congestion, No Mouth pain, No Mouth swelling, No Throat pain, No Throat swelling, No Other Cardiovascular: Chest Pain; No Palpitations; Orthopnea; No Paroxysmal Noc. Dyspnea, No Edema, No Lt Headedness, No Other Respiratory: No Cough, No Dry; Shortness of breath; No SOB with excertion, No Wheezing, No Hemoptysis, No Pleuritic Pain, No Sputum, No Other Gastrointestinal: No Nausea, No Vomiting, No Abdominal Pain, No Diarrhea, No Constipation, No Melena, No Hematochezia, No Other Genitourinary: No Dysuria, No Frequency, No Incontinence, No Hematuria, No Retention, No Other Musculoskeletal: No other, No neck pain, No shoulder pain, No arm pain, No back pain, No hand pain, No leg pain, No foot pain Skin: No Rash, No Lesions, No Jaundice, No Bruising, No Other Objective Vitals Vital Signs Date Time Temp Pulse Resp B/P (MAP) Pulse Ox O2 Delivery O2 Flow Rate FiO2 03/15/25 10:32 72 16 03/15/25 10:22 96 03/15/25 09:38 103/57 03/15/25 09:00 98.2 98.2 03/15/25 07:30 Room Air* 0 21 Intake/Output Intake and Output 03/15/25 07:00 Intake Total 584 ml Output Total 1050 ml Balance -466 ml Intake Oral 584 ml Output Urine Total 1050 ml # Voids 1 # Bowel Movements 1 Medications Current Medications Medications Dose Ordered Sig/Rodney Route Start Time Stop Time Status Last Admin Dose Admin Acetaminophen/ Hydrocodone Bitart 1 tab Q4HP PRN PO 03/10/25 08:15 03/15/25 01:40 1 TAB Ondansetron HCl 4 mg Q4HP PRN IV 03/10/25 08:15 Acetaminophen 650 mg Q6HP PRN PO 03/10/25 08:15 03/15/25 09:42 650 MG Morphine Sulfate 2 mg Q4HPRN PRN IV 03/10/25 08:15 03/15/25 03:44 2 MG Nitroglycerin 0.4 mg Q5MINP PRN SL 03/10/25 08:15 03/12/25 20:20 0.4 MG Morphine Sulfate 2 mg Q30M PRN IV 03/10/25 08:15 Nicotine 1 patch DAILY TD 03/10/25 10:00 03/11/25 10:26 1 PATCH Amlodipine Besylate 10 mg DAILY PO 03/10/25 10:00 03/11/25 10:24 10 MG Aspirin 81 mg DAILY PO 03/10/25 10:00 03/15/25 09:43 81 MG Atorvastatin Calcium 40 mg HS PO 03/10/25 22:00 03/14/25 22:16 40 MG Carvedilol 25 mg Q12HR PO 03/10/25 10:00 Hold Clopidogrel Bisulfate 75 mg DAILY PO 03/10/25 10:00 03/15/25 09:43 75 MG Empaglifozin 10 mg QAM PO 03/11/25 07:00 03/15/25 06:09 10 MG Sacubitril/ Valsartan 1 tab BID PO 03/10/25 10:00 03/15/25 09:43 1 TAB Diagnostic Test (Pha) 1 strip ACHS 03/10/25 11:30 03/15/25 06:09 1 STRIP Insulin Human Regular ACHS SC 03/10/25 11:30 03/15/25 06:11 2 UNITS Dextrose 50 ml UD PRN IV 03/10/25 08:15 Furosemide 40 mg BIDD IV 03/10/25 18:00 03/15/25 06:10 40 MG Albuterol 2.5 mg Q4HWA NEB 03/10/25 14:00 03/15/25 07:29 2.5 MG Carisoprodol 350 mg Q8H PO 03/12/25 20:15 03/15/25 04:43 350 MG Laboratory Results Laboratory Tests 03/14/25 05:56 03/15/25 07:13 Chemistry Test 03/15/25 07:13 Albumin 4.1 g/dL (3.2-4.8) Calcium Level 9.6 mg/dL (8.7-10.4) Total Protein 6.9 g/dL (5.7-8.2) LFT Test 03/15/25 07:13 Alanine Aminotransferase (ALT) 18 U/L (7-40) Alkaline Phosphatase 101 U/L (46-116) Aspartate Amino Transferase (AST) 14 U/L (13-40) Total Bilirubin 0.4 mg/dL (0.2-1.0) Urinalysis Test 03/11/25 02:25 Urine Color Yellow (Yellow) Urine Clarity Clear (Clear) Urine pH 6.0 (5.0-9.0) Urine Specific [place] 1.022 (1.001-1.035) Urine Protein 2+ (Negative) H Urine Ketones Negative (Negative) Urine Blood 1+ /uL (Negative) H Urine Nitrite Negative (Negative) Urine Bilirubin Negative (Negative) Urine Urobilinogen Normal mg/dL (Negative) Urine Leukocyte Esterase Negative /uL (Negative) Urine RBC 1 /hpf (0 - 4) Urine Microscopic WBC 1 /HPF (0-5) Urine Squamous Epithelial Cells Few /hpf (<5) Urine Bacteria None seen /hpf (None Seen) Urine Glucose Normal mg/dL (Normal) Labs and/or images reviewed: Labs reviewed by me, Image(s) reviewed by me Assessment/Plan Assessment/Plan Acute CHF exacerbation: Consult by Cardiology Dr. Molina appreciated Ischemic cardiomyopathy Cardiolite stress test positive, left heart catheterization by Dr. Garcia neg NSTEMI, likely type II secondary to above Coronary Artery disease status post PTCA with stent placement to the LAD (12/2021) Hypertension Dyslipidemia D-dimer elevated 2.64, PE ruled out Pre-diabetes Nicotine dependance counseling Medical non-compliance Anxiety: Xanax Chronic pain syndrome: [place] Morbid obesity Plan discussed with: Patient Date of Service: March 15, 2025 Billing Provider: FRIDA KENNEDY MD Common Visit Codes: [id number] INP/OBS CARE(HIGH) FRIDA KENNEDY MD March 15, 2025 11:29
--- NOTE | 2025-03-15 11:33 | DVHDS2 ---
Discharge Summary Date of Admission March 10, 2025 at 08:01 Date of Discharge: March 15, 2025 Admitting Diagnosis Chest pain and shortness of breath Wounds: Left heart catheterization Labs/Diagnostic Data: Laboratory Results Test 03/15/25 11:09 03/15/25 07:13 03/14/25 05:56 03/13/25 12:50 POC Glucose 112 mg/dl (70-106) Sodium Level 140 mmol/L (136-145) Potassium Level 3.6 mmol/L (3.5-5.1) Chloride Level 104 mmol/L (98-107) Carbon Dioxide Level 29 mmol/L (20-31) Anion Gap 7 (5-15) Blood Urea Nitrogen 21 mg/dL (9-23) Creatinine 1.12 mg/dL (0.550-1.02) Glomerular Filtration Rate Calc 58 mL/min (>90) BUN/Creatinine Ratio 18.8 (10.0-20.0) Serum Glucose 103 mg/dL (74-106) Calcium Level 9.6 mg/dL (8.7-10.4) Total Bilirubin 0.4 mg/dL (0.2-1.0) Aspartate Amino Transferase (AST) 14 U/L (13-40) Alanine Aminotransferase (ALT) 18 U/L (7-40) Alkaline Phosphatase 101 U/L (46-116) Total Protein 6.9 g/dL (5.7-8.2) Albumin 4.1 g/dL (3.2-4.8) White Blood Count 5.3 10^3/uL (4.4-10.8) Red Blood Count 4.93 10^6/uL (4.0-5.20) Hemoglobin 12.4 g/dL (12.2-16.2) Hematocrit 38.4 % (36.0-46.0) Mean Corpuscular Volume 77.9 fL (80.0-100.0) Mean Corpuscular Hemoglobin 25.1 pg (28.0-32.0) Mean Corpuscular Hemoglobin Concent 32.2 g/dL (32.0-36.0) Red Cell Distribution Width 18.2 % (11.8-14.3) Platelet Count 306 10^3/uL (140-450) Mean Platelet Volume 8.0 fL (6.9-10.8) Neutrophils (%) (Auto) 53.1 % (37.0-80.0) Lymphocytes (%) (Auto) 33.2 % (10.0-50.0) Monocytes (%) (Auto) 11.0 % (0.0-12.0) Eosinophils (%) (Auto) 2.2 % (0.0-7.0) Basophils (%) (Auto) 0.5 % (0.0-2.0) Neutrophils # (Auto) 2.8 10 ^3/uL (1.6-8.6) Lymphocytes # (Auto) 1.7 10 ^3/uL (0.4-5.4) Monocytes # (Auto) 0.6 10 ^3/uL (0-1.3) Eosinophils # (Auto) 0.1 10 ^3/uL (0-0.8) Basophils # (Auto) 0 10 ^3/uL (0-0.2) Nucleated Red Blood Cells 0.1 % Prothrombin Time 9.4 sec (9.3-11.8) Prothrombin Time INR 0.88 (0.9-1.15) Activated Partial Thromboplast Time 25.7 SEC (24.5-34.5) Test 03/12/25 21:06 03/11/25 02:25 03/10/25 02:38 03/10/25 00:40 Troponin I High Sensitivity 36 ng/L (</=34) Urine Color Yellow (Yellow) Urine Clarity Clear (Clear) Urine pH 6.0 (5.0-9.0) Urine Specific [place] 1.022 (1.001-1.035) Urine Protein 2+ (Negative) Urine Ketones Negative (Negative) Urine Blood 1+ /uL (Negative) Urine Nitrite Negative (Negative) Urine Bilirubin Negative (Negative) Urine Urobilinogen Normal mg/dL (Negative) Urine Leukocyte Esterase Negative /uL (Negative) Urine RBC 1 /hpf (0 - 4) Urine Microscopic WBC 1 /HPF (0-5) Urine Squamous Epithelial Cells Few /hpf (<5) Urine Bacteria None seen /hpf (None Seen) Urine Glucose Normal mg/dL (Normal) Thyroid Stimulating Hormone (TSH) 1.15 uIU/mL (0.55-4.78) Triglycerides Level 345 mg/dL (< 150) Cholesterol Level 185 mg/dL (< 200) LDL Cholesterol 95 mg/dL (< 100) HDL Cholesterol 48 mg/dL (40-59) Test 03/09/25 23:50 D-Dimer, Quantitative 2.64 mg/L FEU (0.0-0.49) Hemoglobin A1c 6.1 % A1C (<5.7) Lactic Acid Level 1.4 mmol/L (0.4-2.0) B-Type Natriuretic Peptide 127.33 pg/mL (0-100) Lipase 44 U/L (12-53) Other Laboratory Tests 03/15/25 07:13 03/14/25 05:56 Brief Hx & Hospital Course: 84-year-old female with a history of CHF coronary artery disease status post stents December 2021 hypotension hypercholesterolemia chronic current smoker anxiety chronic pain syndrome morbid obesity noncompliance came in complaining of chest pain and shortness of breaths. Troponin slightly elevated non ST- elevation type 2 [place] seen by blister pack operator Dr. Molina. Patient has a ischemic cardiomyopathy. Cardiolite stress test positive left heart catheterization by Dr. Garcia negative patient received Lasix. D-dimer elevated 2.64 PE ruled out. At the time of discharge patient on room air stable vital signs discharged home. Prescription [place] and Xanax sent to the pharmacy. She will continue all her previous home medications and follow up with her primary Dr. advised to quit smoking Consults/Reason for consult Cardiology Dr. Molina Cardiology Dr. Garcia Operations or Procedures Cardiolite stress test Left heart catheterization Condition at Discharge: Fair Final Diagnosis/Problems List Acute CHF exacerbation: Consult by Cardiology Dr. Molina appreciated Ischemic cardiomyopathy Cardiolite stress test positive, left heart catheterization by Dr. Garcia neg NSTEMI, likely type II secondary to above Coronary Artery disease status post PTCA with stent placement to the LAD (12/2021) Hypertension Dyslipidemia D-dimer elevated 2.64, PE ruled out Pre-diabetes Nicotine dependance counseling Medical non-compliance Anxiety: Xanax Chronic pain syndrome: [place] Morbid obesity Discharge Disposition: Home Discharge Instruct/Medications Diet: Cardiac 2g Na,low cholest Activity: Light activity Follow Up/Referral: Follow up with the primary Dr Cabrera all previous home medications Medications: Xanax [place] Transmitted to pharmacy 39 (Time taken for discharge summary 39 minutes) Discharge Statement: "Patient was advised to return to the ER or call 911 if any headaches, dizziness, shortness of breath, chest pain, abdominal pain, bleeding, fevers, or worsening of medical condition. Patient was counseled about treatment plan, medications, possible side effects, patientverbalized understanding. All questions were answered to the best of my ability. This discharge took greater then 30 minutes in planning, reviewing documentation, counseling the patient, and discussing with other team members." ASSESSMENT ASSESSMENT Hospital Course Improved Assessment Acute CHF exacerbation: Consult by Cardiology Dr. Molina appreciated Ischemic cardiomyopathy Cardiolite stress test positive, left heart catheterization by Dr. Garcia neg NSTEMI, likely type II secondary to above Coronary Artery disease status post PTCA with stent placement to the LAD (12/2021) Hypertension Dyslipidemia D-dimer elevated 2.64, PE ruled out Pre-diabetes Nicotine dependance counseling Medical non-compliance Anxiety: Xanax Chronic pain syndrome: [place] Morbid obesity Date of Service: March 15, 2025 Billing Provider: FRIDA KENNEDY MD Common Visit Codes: [id number] DISCH DAY >30min FRIDA KENNEDY MD March 15, 2025 11:33
== END 2025-03-15 13:20 | disposition home or self-care (01) | DRG 280 ==
LOC: EDUNIT# 23:37 → EDBD 23:37 → ER 23:40 → OVERFLOW 03-10 08:01 → TELE-WESTW 03-10 17:47
PROVIDERS: ADMIT Family Medicine; ATTEND Family Medicine
PROC: 4A023N7 Measurement of Cardiac Sampling and Pressure, Left Heart, Percutaneous Approach (ICD-10-PCS; principal; 2025-03-14)
PROC: B211YZZ Fluoroscopy of Multiple Coronary Arteries using Other Contrast (ICD-10-PCS; 2025-03-14)
PROC: B215YZZ Fluoroscopy of Left Heart using Other Contrast (ICD-10-PCS; 2025-03-14)
DX: I11.0 Hypertensive heart disease with heart failure (principal); I50.31 Acute diastolic (congestive) heart failure; I21.A1 Myocardial infarction type 2; Z68.41 Body mass index [BMI] 40.0-44.9, adult; I25.10 Atherosclerotic heart disease of native coronary artery without angina pectoris; F17.210 Nicotine dependence, cigarettes, uncomplicated; E66.01 Morbid (severe) obesity due to excess calories; I25.5 Ischemic cardiomyopathy; E11.9 Type 2 diabetes mellitus without complications; G89.4 Chronic pain syndrome; F41.9 Anxiety disorder, unspecified; E78.00 Pure hypercholesterolemia, unspecified; Z83.3 Family history of diabetes mellitus; Z79.84 Long term (current) use of oral hypoglycemic drugs; Z79.899 Other long term (current) drug therapy; Z79.82 Long term (current) use of aspirin; Z95.5 Presence of coronary angioplasty implant and graft; Z71.6 Tobacco abuse counseling; Z82.49 Family history of ischemic heart disease and other diseases of the circulatory system; Z86.711 Personal history of pulmonary embolism; Z79.2 Long term (current) use of antibiotics; Z91.199 Patient's noncompliance with other medical treatment and regimen due to unspecified reason
CPT/HCPCS: 36415; 71045; 71275; 78452; 80048; 80053; 80061; 81001; 82962; 83036; 83605; 83690; 83880; 84443; 84484; 85025; 85379; 85610; 85730; 93005; 93017; 93306; 93458; 94640; 96372; 99152; G0378; J1100; J1815; J2250; Q9967